=== PATIENT | male | born 1980 | race Caucasian/White ===

== ENCOUNTER → 2017-02-14 | Emergency (ER) | payer OTHER ==
[~2017-02-14] MED LIST: ACETAMINOPHEN 325 MG TABLET (FP) ONE; ACETAMINOPHEN 325 MG TABLET (FP) PO ONE; ALBUTEROL SO4 2.5/IPRATROPIUM 0.5 INH SOL 3 ML VIAL.NEB. NEB ONE; ASPIRIN 81 MG CHEWABLE TABLETS ONE; ASPIRIN 81 MG CHEWABLE TABLETS PO ONE
[2017-02-14 17:14] VITALS: TEMP 98; BMI 24.6
--- NOTE | 2017-02-14 17:50 | PDOC ---
[id number] [id number] CHEST PAIN Time Seen by Provider: 02/14/17 17:49 History Source: Patient Exam Limitations: No Limitations - History of Present Illness Initial Comments: 02/14/17 17:50 CHIEF COMPLAINT: Chest pain HISTORY OF PRESENT ILLNESS: This is a 36 year old male with a history of HTN, HLD, asthma (on daily Symbicort and Singulair, albuterol prn, hospitalized but never intubated), and seizure disorder who presents complaining of chest pain. The pain began this morning while he was at work. He works as a senior mechanical design engineer, but denies any heavy lifting or straining today. The pain has been constant and does not seem to be related to movement or exertion. He denies cough and shortness of breath. He recalls having a normal stress test about 1 year ago. The patient smokes 3-4 cigarettes daily. Family history is notable for father with CVA and DVTs. V/s on arrival are notable for P 100. PCP is Dr. Kidd. Distribution Spec is Dr. Davenport. REVIEW OF SYSTEMS: GENERAL/CONSTITUTIONAL: No fever or chills. No weakness. No weight change. HEAD, EYES, EARS, NOSE AND THROAT: No change in vision. No ear pain or discharge. No sore throat. CARDIOVASCULAR: See HPI. RESPIRATORY: No cough, wheezing, or shortness of breath. GASTROINTESTINAL: No nausea, vomiting, diarrhea or constipation. GENITOURINARY: No dysuria, frequency, or change in urination. MUSCULOSKELETAL: No joint or muscle swelling or pain. No neck or back pain. SKIN: No rash or easy bruising. NEUROLOGIC: No headache, vertigo, loss of consciousness, or loss of sensation. PSYCHIATRIC: No depression or anxiety. ENDOCRINE: No increased thirst. No abnormal weight change. HEMATOLOGIC/LYMPHATIC: No anemia, easy bleeding, or history of blood clots. ALLERGIC/IMMUNOLOGIC: No hives or skin allergy. No latex allergy. PHYSICAL EXAM: GENERAL: The patient is awake, alert, and fully oriented, in no acute distress. HEAD: Normal with no signs of trauma. ENT: Pupils equal, round and reactive to light, extraocular movements intact, sclera anicteric, conjunctiva clear. Neck supple. LUNGS: Clear to auscultation bilaterally. Normal excursion. No respiratory distress or use of accessory muscles. Pain not reproducible with palpation/ twisting movement. CV: RRR, S1/S2, no MRG. Cap refill < 2 sec. ABDOMEN: Soft, non-distended, non-tender. EXTREMITIES: Normal range of motion, no edema. NEUROLOGICAL: Normal speech, normal gait. CN II-XII grossly intact. PSYCH: Normal mood, normal affect. SKIN: Warm, dry, normal turgor, no rashes or lesions noted. Past History - Past Medical History Allergies/Adverse Reactions: Allergies Allergy/AdvReac Type Severity Reaction Status Date / Time fluticasone propionate Allergy Verified 02/14/17 17:14 [From Advair Diskus] ibuprofen [From Motrin] Allergy ulcers Verified 02/14/17 17:14 NSAIDS (Non-Steroidal Allergy Verified 02/14/17 17:14 Anti-Inflamma salmeterol xinafoate AdvReac Intermediate Elevated Verified 02/14/17 17:14 [From Advair Diskus] Blood Pressure Home Medications: Ambulatory Orders Amlodipine Besylate [Norvasc -] 10 mg PO DAILY 10/16/12 Atorvastatin Ca [Lipitor] 10 mg PO DAILY 10/16/12 Losartan Potassium 100 mg PO DAILY 10/16/12 Omeprazole [Prilosec (RX)] 40 mg PO DAILY 10/16/12 Albuterol Sulfate [Proair Hfa -] 1 - 2 inh PO TID 02/07/15 Budesonide/Formeterol Fumarate [SYMBICORT 160/4.5mcg -] 1 inh PO BID 02/07/15 Chlorthalidone 25 mg PO DAILY 02/14/17 Asthma: Yes Cardiac Disorders: Yes (heart murmur) Disorders: Yes (kidney stones) HTN: Yes Hypercholesterolemia: Yes Seizures: Yes Thyroid Disease: Yes - Surgical History Neurologic Surgery: (l breast lump removed) - Immunization History Immunization Up to Date: Yes - Psycho/Social/Smoking Cessation Hx Anxiety: No Suicidal Ideation: No Smoking Status: Yes Smoking History: Current every day smoker Have you smoked in the past 12 months: Yes Number of Cigarettes Smoked Daily: 40 Information on smoking cessation initiated: No 'Breaking Loose' booklet given: 12/20/13 Hx Alcohol Use: Yes (social) Drug/Substance Use Hx: No Substance Use Type: None *Physical Exam - Vital Signs Last Vital Signs Temp Pulse Resp BP Pulse Ox 98 F 100 H 18 157/93 99 02/14/17 17:11 02/14/17 17:11 02/14/17 17:11 02/14/17 17:11 02/14/17 17:11 Heart Score/ECG Review - History History: Moderately suspicious - Electrocardiogram EKG: Normal - Age Age: </= 45 - Risk Factors Risk Factors Heart Score: Yes Hx Hypertension, Yes Smoking History, Yes Positive family hx of cardiac disease - ECG Intrepretation Comment:: 02/14/17 18:37 NSR at 85bpm, possible left atrial enlargement, Q waves in V1 and V2 also seen on prior EKG of 12/2013. ED Treatment Course - LABORATORY CBC & Chemistry Diagram: 02/14/17 18:22 02/14/17 18:22 - RADIOLOGY Radiology Studies Ordered: Category Date Time Status CHEST PA & LAT [RAD] Stat Radiology 02/14/17 17:49 Ordered Medical Decision Making - Medical Decision Making 02/14/17 18:36 A/P: 36 year old male with chest pain. 1. EKG 2. CXR 3. Cardiac labs + d-dimer (family hx DVT, current smoker) 4. ASA 162mg (allergic to ibuprofen but has taken ASA without reaction) 5. Reassess *DC/Admit/Observation/Transfer Diagnosis at time of Disposition: Atypical chest pain, Bronchitis - Discharge Dispostion Disposition: HOME - Referrals Referrals: Keyanna Haynes MD [Primary Care Provider] - - Patient Instructions Printed Discharge Instructions: DI for Atypical Chest Pain Additional Instructions: follow up with your doctor as soon as possible. continue albuterol as prescribed
[2017-02-14 18:35] LABS: BASOPHIL 1.4 % (0-2.0); EOSINOPHIL 2.6 % (0-4.5); MCH 30.2 pg (25.7-33.7); MCHC 33.6 g/dl (32.0-35.9); MEAN CELL VOLUME 89.9 fl (80-96); MEAN PLT VOLUME 8.9 fl (7.5-11.1); NEUTROPHILS 50.8 % (42.8-82.8); PLATELET COUNT 292 K/MM3 (134-434); RDW 13.1 % (11.9-15.9); WHITE BLOOD COUNT 7.9 K/mm3 (4.0-10.0)
[2017-02-14 18:53] LABS: INR 1.08 (0.82-1.09)
[2017-02-14 18:56] LABS: ALBUMIN 4.1 g/dl (3.4-5.0); ANION GAP 9 (8-16); BILIRUBIN,TOTAL 0.4 mg/dL (0.2-1.0); CALCIUM 9.4 mg/dL (8.5-10.1); CO2 30 mmol/L (21-32); CREATININE 0.8 mg/dL (0.7-1.3); GLUCOSE,RANDOM 93 mg/dL (74-106); SGOT/AST 14 U/L (15-37); SGPT/ALT 32 U/L (12-78); TOT PROT 7.5 g/dl (6.4-8.2)
[2017-02-14 18:59] LABS: ALK PHOS 80 U/L (45-117); TROPONIN I < 0.02 ng/ml (0.00-0.05)
[2017-02-14 19:17] LABS: D-DIMER < 200 ng/ml (<200-235)
--- NOTE | 2017-02-14 20:57 | PDOC ---
[id number] 99 02/14/17 17:11 02/14/17 17:11 02/14/17 17:11 02/14/17 17:11 02/14/17 17:11 - Physical Exam General Appearance: Yes: Appropriately Dressed Respiratory/Chest: positive: Other (coarse breath sounds, moist cough) Cardiovascular: positive: Regular Rhythm, Regular Rate Gastrointestinal/Abdominal: positive: Normal Bowel Sounds Extremity: positive: Normal Capillary Refill, Normal Inspection, Normal Range of Motion Integumentary: positive: Normal Color, Dry, Warm Neurologic: positive: Fully Oriented, Alert ED Treatment Course - LABORATORY CBC & Chemistry Diagram: 02/14/17 18:22 02/14/17 18:22 - ADDITIONAL ORDERS Additional order review: Laboratory Results 02/14/17 02/14/17 18:22 18:22 INR 1.08 D-Dimer < 200 Sodium 140 Potassium 4.1 Chloride 101 Carbon Dioxide 30 D Anion Gap 9 BUN 7 Creatinine 0.8 Creat Clearance w eGFR > 60 Random Glucose 93 Calcium 9.4 Total Bilirubin 0.4 D AST 14 L ALT 32 D Alkaline Phosphatase 80 Creatine Kinase 81 Troponin I < 0.02 Total Protein 7.5 Albumin 4.1 02/14/17 18:22 RBC 4.96 MCV 89.9 MCHC 33.6 RDW 13.1 MPV 8.9 Neutrophils % 50.8 Lymphocytes % 38.1 Monocytes % 7.1 Eosinophils % 2.6 Basophils % 1.4 - RADIOLOGY Chest X-Ray Result: No Infiltrates Radiograph Interpretation: 02/14/17 20:57 hyperinflated lungs. CXR offcial read pending. no focal consolidation noted - Medications Given in the ED: ED Medications Discontinued Medications Generic Name Dose Route Start Last Admin Trade Name Freq PRN Reason Stop Dose Admin Aspirin 162 mg 02/14/17 18:16 02/14/17 18:21 Asa - PO 02/14/17 18:17 162 mg ONCE ONE Administration Medical Decision Making - Medical Decision Making 02/15/17 01:40 pATIENT reports that he is currently on azithromycin for bronchitis. likely pain related cough and chest congestion. cardiac workup wnl. cardiac enzymes x 2 wnl. EKG: Sinus Bradycardia. Possible left atrial enlargement. Patient reports feeling better. will d/c home to follow up with pmd *DC/Admit/Observation/Transfer Diagnosis at time of Disposition: Atypical chest pain, Bronchitis - Discharge Dispostion Disposition: HOME - Referrals Referrals: Keyanna Haynes MD [Primary Care Provider] - - Patient Instructions Printed Discharge Instructions: DI for Atypical Chest Pain Additional Instructions: follow up with your doctor as soon as possible. continue albuterol as prescribed - Post Discharge Activity
[2017-02-14 20:59] VITALS: BP 151/90; PULSE 64
[2017-02-15 01:36] LABS: TROPONIN I < 0.02 ng/ml (0.00-0.05)
--- NOTE | 2017-02-15 17:33 | EKG ---
Test Reason : Blood Pressure : / mmHG Vent. Rate : 058 BPM Atrial Rate : 058 BPM P-R Int : 154 ms QRS Dur : 106 ms QT Int : 452 ms P-R-T Axes : 050 036 030 degrees QTc Int : 443 ms SINUS BRADYCARDIA POSSIBLE LEFT ATRIAL ENLARGEMENT BORDERLINE ECG WHEN COMPARED WITH ECG OF 20-DEC-2013 20:04, NO SIGNIFICANT CHANGE WAS FOUND Confirmed by GENI NUNES MD ([id number]) on 02/15/2017 5:33:24 PM Referred By: Confirmed By:GENI NUNES MD
--- NOTE | 2017-02-15 17:35 | EKG ---
Test Reason : Blood Pressure : / mmHG Vent. Rate : 085 BPM Atrial Rate : 085 BPM P-R Int : 158 ms QRS Dur : 092 ms QT Int : 370 ms P-R-T Axes : 046 037 035 degrees QTc Int : 440 ms NORMAL SINUS RHYTHM POSSIBLE LEFT ATRIAL ENLARGEMENT CANNOT RULE OUT SEPTAL INFARCT (CITED ON OR BEFORE 16-OCT-2012) ABNORMAL ECG WHEN COMPARED WITH ECG OF 20-DEC-2013 20:04, NO SIGNIFICANT CHANGE WAS FOUND Confirmed by GENI NUNES MD ([id number]) on 02/15/2017 5:35:01 PM Referred By: Confirmed By:GENI NUNES MD
== END | disposition home or self-care (01) ==
LOC: JER 17:08
PROC: 3E0F7GC Introduction of Other Therapeutic Substance into Respiratory Tract, Via Natural or Artificial Opening (ICD-10-PCS; principal; 2017-02-14)
DX: J40 Bronchitis, not specified as acute or chronic (principal)
CPT/HCPCS: 36415; 71020-TC; 80053; 82550; 84484; 85025; 85379; 85610; 93005; 93010; 94640; 99283-25

== ENCOUNTER 2020-07-22 04:51 | Inpatient (IN) | payer OTHER ==
[2020-07-22] MEDS ORDERED: MAGNESIUM 1GM/D5W - 2 GM/200 ML IVPB IVPB ONE (05:00)
[2020-07-22] MEDS ORDERED: EPINEPHrine/PF 1 MG/1 ML (1:1,000) AMPULE ONE ×2 (05:03→05:12)
[2020-07-22] MEDS ORDERED: DEXAMETHASONE SOD PHOSPHATE 10 MG/1 ML VIAL ONE (05:16)
[2020-07-22] MEDS ORDERED: ALBUTEROL SO4 2.5/IPRATROPIUM 0.5 INH SOL 3 ML VIAL.NEB. NEB ONE ×2 (05:25→15:13)
[2020-07-22] MEDS ORDERED: EPINEPHrine 1:1,000 0.3 MG/0.3 ML SYR IM ONE (05:25)
[2020-07-22] MEDS ORDERED: MAGNESIUM SULF 50% (8.12 MEQ/2 ML-1 GM VIAL) IVPB ONE ×2 (05:25→05:39)
[2020-07-22] MEDS ORDERED: SODIUM CHLORIDE 1,000 ML IV STA (05:25)
--- NOTE | 2020-07-22 05:37 | PDOC ---
Attending Attestation - Resident Resident Name: Jerome Hager - ED Attending Attestation I have performed the following: I have examined & evaluated the patient, The case was reviewed & discussed with the resident, I agree w/resident's findings & plan - HPI HPI: 07/22/20 06:08 see resident hpi - Physicial Exam PE: 07/22/20 06:08 see resident exam - Critical Care Time Total Critical Care Time: 60 Critical Care Statement: The care of this patient involved high complexity decision making to prevent further life threatening deterioration of the patient's condition and/or to evaluate & treat vital organ system(s) failure or risk of failure. - Medical Decision Making 07/22/20 06:39-year-old male complaining of sore throat and difficulty breathing On arrival patient had received nebulizer treatment as well as dexamethasone with some improvement On exam bilaterally with increased upper airway sounds on forced expiration and cough Patient received magnesium 2 g, DuoNeb and epinephrine 1: 1000, 0.3 mg IM Is currently in no active distress and able to speak full sentences Does admit to recent chest pain and sore throat which may be related to acid reflux He also admits to regular alcohol use, specifically earlier this evening Plan for labs, EKG chest x-ray We will plan for telemetry observation pending reevaluation Discharge - Discharge Information Problems reviewed: Yes Clinical Impression/Diagnosis: Laryngospasm, Asthma, Burning chest pain Condition: Stable - Follow up/Referral Referrals: Keyanna Haynes MD [Primary Care Provider] - - Patient Discharge Instructions - Post Discharge Activity
--- NOTE | 2020-07-22 05:41 | PDOC ---
History of Present Illness - General Chief Complaint: Asthma Stated Complaint: S.O.B. Time Seen by Provider: 07/22/20 05:35 History Source: Patient, EMS Exam Limitations: No Limitations - History of Present Illness Initial Comments: 07/22/20 05:35 PCP: [place] HPI: 39 yo M pmh asthma, GERD, h/o peptic ulcers, HTN, HLD, tobacco and marijuana abuse, lung nodule, presenting from home with shortness of breath, cough progressively worsening for 3 days. Patient reports compliance with his asthma medications. Endorses intermittent ETOH use including 3 days ago and again tonight. Reporting GERD symptoms over the past 1.5 week period with progressively worsening cough and burning chest discomfort. Reports 5 cigarettes / day down from 2 ppd previously, occasional marijuana smoker. Patient endorses prior prolonged ICU admission at [facility] with intubation for asthma. Endorses chest pain while coughing, denies diaphoresis, exertional chest pain, edema, cardiac problems, recent fevers, chills, nausea, vomiting. Unsure of his triggers, progressive symptoms for several days. All: NSAIDs (h/o ulcer), fluticasone Meds: Per chart PMH: As above PSH: Surgery left right [id number] s/p accidental amputation Past History - Travel History Traveled outside of the country in the last 30 days: No Close contact w/someone who was outside of country & ill: No - Medical History Allergies/Adverse Reactions: Allergies Allergy/AdvReac Type Severity Reaction Status Date / Time fluticasone propionate Allergy Verified 02/14/17 17:14 [From Advair Diskus] ibuprofen [From Motrin] Allergy ulcers Verified 02/14/17 17:14 NSAIDS (Non-Steroidal Allergy Verified 02/14/17 17:14 Anti-Inflamma salmeterol xinafoate AdvReac Intermediate Elevated Verified 02/14/17 17:14 [From Advair Diskus] Blood Pressure Home Medications: Ambulatory Orders Amlodipine Besylate [Norvasc -] 10 mg PO DAILY 10/16/12 Atorvastatin Ca [Lipitor] 10 mg PO DAILY 10/16/12 Losartan Potassium 100 mg PO DAILY 10/16/12 Omeprazole [Prilosec (RX)] 40 mg PO DAILY 10/16/12 Albuterol Sulfate [Proair Hfa -] 1 - 2 inh PO TID 03/27/15 Budesonide/Formeterol Fumarate [SYMBICORT 160/4.5mcg -] 1 inh PO BID 02/07/15 Chlorthalidone 25 mg PO DAILY 02/14/17 Asthma: Yes Cardiac Disorders: Yes (heart murmur) COPD: No Disorders: Yes (kidney stones) HTN: Yes Hypercholesterolemia: Yes Seizures: Yes Thyroid Disease: Yes - Surgical History Neurologic Surgery: (l breast lump removed) - Immunization History Immunization Up to Date: Yes - Psycho-Social/Smoking History Smoking Status: Yes Smoking History: Current every day smoker Have you smoked in the past 12 months: Yes Number of Cigarettes Smoked Daily: 5 Information on smoking cessation initiated: Yes 'Breaking Loose' booklet given: 12/20/13 - Substance Abuse Hx (Audit-C & DAST Scrn) How often the patient has a drink containing alcohol: 2-4 times / month Number of drinks the patient has on a typical day: 3 or 4 How often the patient has six or more drinks on one occasion: Less than monthly Score: In Men: 4 or > Positive; In Women: 3 or > Positive: 4 Screen Result (Pos requires Nsg. Audit-10AR): Positive In the last yr the pt used illegal drug/Rx for NonMed reason: Yes Score: Yes response is considered Positive: 1 Screen Result (Positive result requires Nsg. DAST-10): Positive Review of Systems - Review of Systems Able to Perform ROS?: Yes Is the patient limited Kinyarwanda proficient: Yes Constitutional: No: Chills, Fever, Weakness HEENTM: No: Recent change in vision, Nose Congestion, Throat Pain Respiratory: Yes: Cough, Shortness of Breath. No: Wheezing, Productive cough Cardiac (ROS): Yes: Chest Pain. No: Palpitations, Syncope, Chest Tightness ABD/GI: No: Constipated, Diarrhea, Nausea, Vomiting : No: Burning, Dysuria, Frequency Musculoskeletal: No: Back Pain, Muscle Pain, Muscle Weakness Integumentary: No: Bruising, Lesions, Lumps Neurological: No: Headache, Numbness, Tingling, Weakness Psychiatric: No: Stressors, Change in Appetite Endocrine: No: Increased Thirst, Increased Urine, Change in Weight Hematologic/Lymphatic: No: Anemia, Blood Clots, Easy Bleeding All Other Systems: Reviewed and Negative *Physical Exam - Vital Signs Last Vital Signs Temp Pulse Resp BP Pulse Ox 97.8 F 102 H 42 H 151/103 H 100 07/22/20 05:05 07/22/20 05:05 07/22/20 05:05 07/22/20 05:05 07/22/20 05:05 - Physical Exam 07/22/20 05:49 Vitals reviewed, afebrile, hypertensive, tachyardic, tachypneic on arrival GEN: Coughing violently, uncomfortable, speaking full sentences, smells of smoke, appears stated age. AAOx3. HEENT: NCAT, EOMI, PERRL. Sclera anicteric, non-injected. No facial asymmetry. Moist mucous membranes. Trachea midline. CV: RRR, S1/S2, no murmurs / rubs / gallops appreciated. LUNG: Coughing without production of sputum, increased work of breathing, scattered upper airway wheezes, good air movement without wheezes in mid-lower lung mello. Speaking full sentences with ease. GI: Soft, NTND, +BS, no guarding, no rebound. No masses. EXTREMITIES: 2+ distal pulses. No clubbing / cyanosis / edema. No gross deformity in any extremity. Post-surgical left ring finger tip. SKIN: Warm, dry, no rashes appreciated, non-jaundiced. PSYCH: Inebriated, normal mood and affect. Personable and cooperative. NEURO: CN grossly intact. Moving all extremities well. Normal strength and sensation grossly. ED Treatment Course - LABORATORY CBC & Chemistry Diagram: 07/22/20 05:10 07/22/20 05:10 - Medications Given in the ED: ED Medications Discontinued Medications Generic Name Dose Route Start Last Admin Trade Name Conchita PRN Reason Stop Dose Admin Albuterol/Ipratropium 3 amp 07/22/20 05:25 07/22/20 05:10 Duoneb - NEB 07/22/20 05:26 3 amp ONCE ONE Administration Epinephrine 0.3 mg 07/22/20 05:25 07/22/20 05:25 Epipen 0.3mg - IM 07/22/20 05:26 0.3 mg ONCE ONE Administration Medical Decision Making - Medical Decision Making 07/22/20 05:41 39 yo M pmh asthma, GERD, h/o peptic ulcers, HTN, HLD, tobacco and marijuana abuse, lung nodule, presenting from home with shortness of breath, cough progressively worsening for 3 days. History notable for subacute worsening, cough, ETOH intox at present. Exam notable for violent coughing on arrival, hypertension, tachycardia and tachypnea with the violent coughs, good air movement throughout with transmitted upper airway sounds / scattered high-field wheezes. Ddx: aspiration, croup, GERD upper airway irritation, less likely given exam - PNA, asthma exacerbation. Will also evaluate for GERD vs r/o ACS given atypical chest pain complaint. - CBC, CMP, Cardiac Profile, Mg, ETOH, ASA, Salicylates, ABG - CXR, EKG - Duonebs x3 - Mg 2mg IV - Epi 0.3cc of 1:1000 IM - s/p Decadron 10 mg IV with EMS - 1L NS - Pepcid - Maalox 07/22/20 06:01 EK, NSR, normal axis, normal intervals, QTc 450, no ST changes or concerning morphologies Patient more relaxed, HR 90s, BP improving, RR 16, Sat remains 100% Tentative tele obs for chest pain, asthma exacerbation 07/22/20 06:41 ABG c/w compensated respiratory alkalosis No leukocytosis or anemia Normal electrolytes ETOH elevated Acetaminophen, Troponin, Mg pending Patient to be endorsed to day team Discharge - Discharge Information Problems reviewed: Yes Clinical Impression/Diagnosis: Laryngospasm, Burning chest pain Asthma Qualifiers: Asthma severity: unspecified severity Asthma persistence: unspecified Asthma complication type: unspecified Qualified Code(s): J45.909 - Unspecified asthma, uncomplicated Condition: Stable - Follow up/Referral Referrals: Keyanna Haynes MD [Primary Care Provider] - - Patient Discharge Instructions - Post Discharge Activity
[2020-07-22 05:44] VITALS: BMI 25.8
[2020-07-22 05:47] LABS: BASO % 1.2 % (0-2.0); EOS % 3.2 % (0-4.5); HEMOGLOBIN 15.8 GM/dL (11.7-16.9); LYMPH % 38.2 % (8-40); MCH 31.6 pg (25.7-33.7); MCHC 33.6 g/dl (32.0-35.9); MEAN CELL VOLUME 93.8 fl (80-96); MEAN PLT VOLUME 8.7 fl (7.5-11.1); MONO % 7.2 % (3.8-10.2); NEUT % 50.2 % (42.8-82.8); PLATELET COUNT 348 K/MM3 (134-434); RBC 5.01 M/mm3 (4.00-5.60); RDW 13.9 % (11.9-15.9)
[2020-07-22] MEDS ORDERED: FAMOTIDINE 20 MG/50 ML IVPB 20 MG/50 ML MG IVPB ONE ×2 (06:13→06:41)
[2020-07-22] MEDS ORDERED: MAG HYDROX/AL HYDROX/SIMETH 30 ML UNIT-DOSE CUP PO ONE (06:13)
[2020-07-22 06:18] LABS: ARTERIAL BLD GAS O2 SATURATION 93.6 mmHg (95-98); ARTERIAL BLOOD GAS BASE EXCESS -4.9 mmol/L (-2-2); ARTERIAL BLOOD GAS PO2 69.4 mmHg (80-100); ARTERIAL BLOOD GAS pH 7.368 (7.350-7.450)
[2020-07-22 06:32] LABS: ALBUMIN 4.2 g/dl (3.4-5.0); ANION GAP 13 MMOL/L (8-16); BLOOD UREA NITROGEN 6.9 mg/dL (7-18); CALCIUM 9.4 mg/dL (8.5-10.1); CHLORIDE 108 mmol/L (98-107); CO2 22 mmol/L (21-32); CREATININE 0.8 mg/dL (0.55-1.3); GLUCOSE,RANDOM 93 mg/dL (74-106); MAGNESIUM 2.1 mg/dL (1.8-2.4); POTASSIUM 4.3 mmol/L (3.5-5.1); SGPT/ALT 33 U/L (13-61); SODIUM 143 mmol/L (136-145)
[2020-07-22 06:38] LABS: ALK PHOS 83 U/L (45-117); BILIRUBIN,TOTAL 0.2 mg/dL (0.2-1); SGOT/AST 20 U/L (15-37)
[2020-07-22] MEDS ORDERED: MAG HYDROX/AL HYDROX/SIMETH 30 ML UNIT-DOSE CUP ONE (06:41)
[2020-07-22] MEDS ORDERED: MAGNESIUM 1GM/D5W - 1 GM/100 ML IVPB IVPB ONE (07:28)
--- NOTE | 2020-07-22 10:53 | EKG ---
Test Reason : Blood Pressure : / mmHG Vent. Rate : 102 BPM Atrial Rate : 102 BPM P-R Int : 150 ms QRS Dur : 090 ms QT Int : 346 ms P-R-T Axes : 036 011 024 degrees QTc Int : 450 ms SINUS TACHYCARDIA OTHERWISE NORMAL ECG WHEN COMPARED WITH ECG OF 15-FEB-2017 00:48, VENT. RATE HAS INCREASED BY 44 BPM NONSPECIFIC T WAVE ABNORMALITY NOW EVIDENT IN LATERAL LEADS Confirmed by Ethan Reyes MD ([id number]) on 07/22/2020 10:52:22 AM Referred By: Confirmed By:Ethan Reyes MD
[2020-07-22] MEDS ORDERED: ALBUTEROL SO4 HFA INHALER IH PRN (12:55)
[2020-07-22] MEDS: LACTATED RINGERS SOLUTION 1,000 ML/1,000 ML INFUS.BAG IV SCH (13:00)
--- NOTE | 2020-07-22 13:39 | PN ---
Progress Note (short form) - Note Progress Note: PULMONARY CONSULTATION DICTATED 07/22/20 IMP ACUTE ASTHMA EXACERBATION GERD PEPTIC ULCER DISEASE HTN HLD TOBACCO ABUSE ? H/O PULMONARY NODULE PLAN SUPPLEMENTAL O2 INHALED BRONCHODILATORS IV STEROIDS MONITOR PEAK FLOW SMOKING CESSATION COUNSELED CHEST CT OUTPATIENT PFTS IGE LEVEL DR LOPEZ Problem List - Problems (1) Tobacco abuse Code(s): Z72.0 - TOBACCO USE (2) Tobacco abuse counseling Code(s): Z71.6 - TOBACCO ABUSE COUNSELING (3) Asthma Code(s): J45.909 - UNSPECIFIED ASTHMA, UNCOMPLICATED Qualifiers: Asthma severity: unspecified severity Asthma persistence: unspecified Asthma complication type: unspecified Qualified Code(s): J45.909 - Unspecified asthma, uncomplicated (4) Laryngospasm Code(s): J38.5 - LARYNGEAL SPASM (5) Lung nodule Code(s): R91.1 - SOLITARY PULMONARY NODULE (6) Asthma exacerbation Code(s): J45.901 - UNSPECIFIED ASTHMA WITH (ACUTE) EXACERBATION
[2020-07-22] MEDS ORDERED: ALBUTEROL SO4 0.083% IH SOL 2.5 MG/3 ML VIAL.NEB. NEB PRN (14:08)
[2020-07-22] MEDS: methylPREDNISolone NA SUCC 40 MG/1 ML VIAL IVPUSH SCH ×2 (15:00→21:39)
[2020-07-22] MEDS ORDERED: methylPREDNISolone NA SUCC 125 MG/2 ML VIAL ONE (15:13)
[2020-07-22] MEDS: ALBUTEROL SO4 2.5/IPRATROPIUM 0.5 INH SOL 3 ML VIAL.NEB. NEB SCH ×2 (16:00→20:30)
--- NOTE | 2020-07-22 16:44 | CONS ---
DATE OF CONSULTATION: 07/22/2020 PULMONARY CONSULTATION REFERRING PHYSICIAN: Keyanna Haynes MD. HISTORY OF PRESENT ILLNESS: The patient is a 39-year-old male known to me who was seen in my office, who I evaluated in my office greater than 7 years ago and have not seen since. His past medical history includes asthma, GERD, history of COPD, history of peptic ulcer, hypertension, hyperlipidemia, tobacco and marijuana abuse, admitted to [facility] with complaint of increasing shortness of breath, cough nonproductive, and bronchospasm. The patient denied any recent fevers, URI symptoms. States for the past 3 days, started getting progressive shortness of breath, wheezing, despite taking his inhaled medications his symptoms continued to worsen, at which time he was sent to the emergency room. In the ER, he was noted to be in respiratory distress, he was started on IV steroids with bronchodilators with good clinical response. Denies hemoptysis. He does complain of chest tightness. PAST MEDICAL HISTORY: Past medical history again includes hypertension, GERD, hyperlipidemia, asthma, COPD, questionable lung nodule, tobacco and marijuana abuse. Also past medical history of ICU admission secondary to asthma years ago. REVIEW OF SYSTEMS: Positive shortness of breath. Positive cough. Positive wheezing. No fever. No chills. No hemoptysis. No abdominal pain. Positive chest tightness. CURRENT MEDICATIONS: Include: 1. Symbicort. 2. Cozaar. 3. Albuterol. 4. Norvasc. 5. Lipitor. 6. Lactase Ringer's. PHYSICAL EXAMINATION: General: The patient is a well-developed, well-nourished male, alert, awake, comfortable, currently in no acute distress, although having episodes of coughing paroxysms. He is afebrile. Vital Signs: Blood pressure 145/77, respiratory rate 18, O2 saturation 98% on room air. HEENT: Normocephalic, atraumatic. Neck: Supple. Heart: Regular S1, S2. Chest: A few scattered bilateral wheezes. Abdomen: Soft, bowel sounds positive. Extremities: No cyanosis, edema. LABORATORY: BUN is 6.9, creatinine 0.8. Blood gas: 7.36, pCO2 of 34.6, pO2 is 69, a bicarbonate of 19, and saturation of 93.6. WBC is 10, hemoglobin 15.8, hematocrit 47, platelet count 348,000. Chest x-ray: Poor inspiratory effort but no definitive infiltrates or effusions. Chest CT from 2018 of the left upper lobe. SOCIAL HISTORY: Positive tobacco, started at age 11, previously smoked 3 packs per day, currently now is smoking about 6 cigarettes a day, occasional ETOH and marijuana. IMPRESSION: 1. Dyspnea, chest tightness, cough secondary to acute asthma exacerbation. 2. History of gastroesophageal reflux disease. 3. Peptic ulcer disease. 4. Hypertension. 5. Hyperlipidemia. 6. Tobacco abuse. 7. Questionable history of pulmonary nodule. PLAN: Supplemental O2, inhaled bronchodilators, IV steroids, monitor peak flow, smoking cessation counseled, chest CT, outpatient PFTs and serum IgG levels outpatient. BETTINA LOPEZ M.D. [id number] MTDD
--- NOTE | 2020-07-22 17:47 | HP ---
Admitting History and Physical - Primary Care Physician PCP: Keyanna Haynes - Admission Chief Complaint: heartburn, cough History of Present Illness: severe heartburn for past 2-3 days, dry hacking cough with occasional wheezing and shortness of breath does take nsaids regularly does drink regularly drank three large bottles of beer and shot yesterday has been complaint with his medications History Source: Patient Limitations to Obtaining History: No Limitations - Past Medical History Cardiovascular: Yes: HTN, Other (h/o atypical chest pain, card cath negative in 2013, stress echo negative 2015) Pulmonary: Yes: Asthma - Smoking History Smoking history: Current every day smoker Have you smoked in the past 12 months: Yes Aproximately how many cigarettes per day: 5 - Alcohol/Substance Use Hx Alcohol Use: Yes (social) - Social History Usual Living Arrangement: Yes: Alone History of Recent Travel: No Home Medications - Allergies Allergies/Adverse Reactions: Allergies Allergy/AdvReac Type Severity Reaction Status Date / Time fluticasone propionate Allergy Verified 02/14/17 17:14 [From Advair Diskus] ibuprofen [From Motrin] Allergy ulcers Verified 02/14/17 17:14 NSAIDS (Non-Steroidal Allergy Verified 02/14/17 17:14 Anti-Inflamma salmeterol xinafoate AdvReac Intermediate Elevated Verified 02/14/17 17:14 [From Advair Diskus] Blood Pressure - Home Medications Home Medications: Ambulatory Orders Amlodipine Besylate [Norvasc -] 10 mg PO DAILY 10/16/12 Atorvastatin Ca [Lipitor] 10 mg PO DAILY 10/16/12 Losartan Potassium 100 mg PO DAILY 10/16/12 Omeprazole [Prilosec (RX)] 40 mg PO DAILY 10/16/12 Albuterol Sulfate [Proair Hfa -] 1 - 2 inh PO TID 02/07/15 Budesonide/Formeterol Fumarate [SYMBICORT 160/4.5mcg -] 1 inh PO BID 02/07/15 Chlorthalidone 25 mg PO DAILY 02/14/17 Review of Systems - Review of Systems Constitutional: denies: Chills, Fever, Lethargy, Loss of Appetite, Weakness Eyes: reports: No Symptoms HENT: reports: No Symptoms Neck: reports: No Symptoms Cardiovascular: reports: Chest Pain. denies: Palpitations Respiratory: reports: Cough, SOB on Exertion, Wheezing Gastrointestinal: reports: No Symptoms Genitourinary: reports: No Symptoms, Burning (epigastric) Musculoskeletal: reports: No Symptoms Integumentary: reports: No Symptoms Neurological: reports: No Symptoms Endocrine: reports: No Symptoms Hematology/Lymphatic: reports: No Symptoms Psychiatric: reports: No Symptoms Physical Examination Vital Signs: Vital Signs Temperature 98.2 F 07/22/20 13:32 Pulse Rate 81 07/22/20 13:32 Respiratory Rate 18 07/22/20 13:32 Blood Pressure 145/77 07/22/20 13:32 O2 Sat by Pulse Oximetry (%) 98 07/22/20 13:32 Constitutional: Yes: Well Nourished, No Distress, Calm Eyes: Yes: EOM Intact HENT: Yes: Normocephalic Neck: Yes: Trachea Midline Cardiovascular: Yes: Regular Rate and Rhythm Respiratory: Yes: CTA Bilaterally (coarse bilateral breath sounds) Gastrointestinal: Yes: Normal Bowel Sounds, Soft, Tenderness, Epigastrium Edema: No Peripheral Pulses WNL: Yes Integumentary: Yes: WNL Neurological: Yes: WNL Labs: CBC, BMP 07/22/20 05:10 07/22/20 05:10 Abnormal Lab Results 07/22/20 07/22/20 05:10 05:55 ABG pCO2 34.60 L ABG pO2 69.4 L ABG HCO3 19.5 L ABG O2 Sat (Measured) 93.6 L ABG Base Excess -4.9 L Chloride 108 H BUN 6.9 L Alcohol, Quantitative 130.7 H Imaging - Results Chest X-ray: Report Reviewed Problem List - Problems (1) Alcohol intoxication Problems reviewed: Yes Code(s): F10.929 - ALCOHOL USE, UNSPECIFIED WITH INTOXICATION, UNSPECIFIED Qualifiers: Complication of substance-induced condition: uncomplicated Qualified Code(s): F10.920 - Alcohol use, unspecified with intoxication, uncomplicated (2) Chronic GERD Problems reviewed: Yes Code(s): K21.9 - GASTRO-ESOPHAGEAL REFLUX DISEASE WITHOUT ESOPHAGITIS (3) Asthma exacerbation Code(s): J45.901 - UNSPECIFIED ASTHMA WITH (ACUTE) EXACERBATION Qualifiers: Asthma severity: mild Asthma persistence: intermittent Qualified Code(s): J45.21 - Mild intermittent asthma with (acute) exacerbation (4) Burning chest pain Code(s): R07.89 - OTHER CHEST PAIN Assessment/Plan alcohol intox resolved, does not report daily etoh use-will monitor for DT iv steroids bronchodilators for asthma exacerbation PPI for likely gerd repeat cardiac enzymes-if negative can admit to med/surg [id number] ryesy done in ed-results pending
[2020-07-22] MEDS: BUDESONIDE/FORMETEROL FUMARATE 160/4.5 mcg INHALER IH SCH (23:30)
[2020-07-23] MEDS: methylPREDNISolone NA SUCC 40 MG/1 ML VIAL IVPUSH SCH ×3 (03:15→18:14)
--- NOTE | 2020-07-23 07:42 | PN ---
Progress Note, Physician History of Present Illness: pulmonary alert,feeling better,less dyspneic,less cough - Current Medication List Current Medications: Active Medications Albuterol Sulfate (Ventolin Hfa Inhaler -) 2 puff IH TID PRN PRN Reason: ASTHMA Albuterol Sulfate (Ventolin 0.083% Nebulizer Soln -) 1 amp NEB Q4H PRN PRN Reason: SHORT OF BREATH/WHEEZING Albuterol/Ipratropium (Duoneb -) 1 amp NEB RQID [facility] Last Admin: 07/22/20 20:30 Dose: 1 amp Documented by: Amlodipine Besylate (Norvasc -) 10 mg PO DAILY [facility] Atorvastatin Calcium (Lipitor -) 10 mg PO DAILY [facility] Budesonide/Formoterol Fumarate (Symbicort 160/4.5mcg -) 1 puff IH BID [facility] Last Admin: 07/22/20 23:30 Dose: Not Given Documented by: Lactated Ringer's (Lactated Ringers Solution) 1,000 ml in 1,000 mls @ 75 mls/hr IV ASDIR [facility] Last Admin: 07/22/20 13:00 Dose: 75 mls/hr Documented by: Losartan Potassium (Cozaar -) 100 mg PO DAILY [facility] Methylprednisolone Sodium Succinate (Solu-Medrol -) 60 mg IVPUSH Q6H-IV [facility] Last Admin: 07/23/20 03:15 Dose: 60 mg Documented by: Pantoprazole Sodium (Protonix -) 40 mg PO DAILY [facility] - Objective Vital Signs: Vital Signs Temperature 97.7 F 07/23/20 06:49 Pulse Rate 94 H 07/23/20 06:49 Respiratory Rate 18 07/23/20 06:49 Blood Pressure 138/87 07/23/20 06:49 O2 Sat by Pulse Oximetry (%) 100 07/22/20 22:00 Constitutional: Yes: Well Nourished, Calm Eyes: Yes: WNL HENT: Yes: WNL Neck: Yes: WNL Cardiovascular: Yes: Regular Rate and Rhythm, S1, S2 Respiratory: Yes: Wheezes (few wheezes) Gastrointestinal: Yes: Normal Bowel Sounds, Soft Extremities: Yes: WNL Edema: No Labs: - ....Imaging Cat Scan: Report Reviewed, Image Reviewed Problem List - Problems (1) Tobacco abuse Code(s): Z72.0 - TOBACCO USE (2) Tobacco abuse counseling Code(s): Z71.6 - TOBACCO ABUSE COUNSELING (3) Asthma Code(s): J45.909 - UNSPECIFIED ASTHMA, UNCOMPLICATED Qualifiers: Asthma severity: unspecified severity Asthma persistence: unspecified Asthma complication type: unspecified Qualified Code(s): J45.909 - Unspecified asthma, uncomplicated (4) Laryngospasm Code(s): J38.5 - LARYNGEAL SPASM (5) Lung nodule Code(s): R91.1 - SOLITARY PULMONARY NODULE (6) Asthma exacerbation Code(s): J45.901 - UNSPECIFIED ASTHMA WITH (ACUTE) EXACERBATION Qualifiers: Asthma severity: mild Asthma persistence: intermittent Qualified Code(s): J45.21 - Mild intermittent asthma with (acute) exacerbation Assessment/Plan IMP ACUTE ASTHMA EXACERBATION GERD PEPTIC ULCER DISEASE HTN HLD TOBACCO ABUSE H/O PULMONARY NODULE STABLE PLAN SUPPLEMENTAL O2 INHALED BRONCHODILATORS TAPER STEROIDS MONITOR PEAK FLOW SMOKING CESSATION COUNSELED CHEST CT OUTPATIENT PFTS IGE LEVEL DR LOPEZ Problem List - Problems (1) Tobacco abuse Code(s): Z72.0 - TOBACCO USE (2) Tobacco abuse counseling Code(s): Z71.6 - TOBACCO ABUSE COUNSELING (3) Asthma Code(s): J45.909 - UNSPECIFIED ASTHMA, UNCOMPLICATED Qualifiers: Asthma severity: unspecified severity Asthma persistence: unspecified Asthma complication type: unspecified Qualified Code(s): J45.909 - Unspecified asthma, uncomplicated (4) Laryngospasm Code(s): J38.5 - LARYNGEAL SPASM (5) Lung nodule Code(s): R91.1 - SOLITARY PULMONARY NODULE (6) Asthma exacerbation Code(s): J45.901 - UNSPECIFIED ASTHMA WITH (ACUTE) EXACERBATION
[2020-07-23] MEDS: LACTATED RINGERS SOLUTION 1,000 ML/1,000 ML INFUS.BAG IV SCH (07:55)
[2020-07-23] MEDS: ALBUTEROL SO4 2.5/IPRATROPIUM 0.5 INH SOL 3 ML VIAL.NEB. NEB SCH ×4 (08:00→20:56)
--- NOTE | 2020-07-23 08:28 | PN ---
Progress Note (short form) - Note Progress Note: no events overnight feeling better no epigastric pain Vital Signs Period Temp Pulse Resp BP Sys/Eldridge Pulse Ox Last 24 Hr 97.7 F-98.3 F 69-96 18-32 128-155/77-105 98-100 Active Medications Albuterol Sulfate (Ventolin Hfa Inhaler -) 2 puff IH TID PRN Albuterol Sulfate (Ventolin 0.083% Nebulizer Soln -) 1 amp NEB Q4H PRN Albuterol/Ipratropium (Duoneb -) 1 amp NEB RQID [facility] Amlodipine Besylate (Norvasc -) 10 mg PO DAILY [facility] Atorvastatin Calcium (Lipitor -) 10 mg PO DAILY [facility] Budesonide/Formoterol Fumarate (Symbicort 160/4.5mcg -) 1 puff IH BID [facility] Losartan Potassium (Cozaar -) 100 mg PO DAILY [facility] Methylprednisolone Sodium Succinate (Solu-Medrol -) 60 mg IVPUSH Q6H-IV [facility] Pantoprazole Sodium (Protonix -) 40 mg PO DAILY [facility] s1 s2 rrr lungs scattered exp. wheezing abd soft nn tedner no edema acute asthma exacerbation-better lung nodule in past HTN alcohol intoxication-resolved GERD cont iv steroids bronchodilators chest CT for lung nodule dc iv fluids transfer to [facility] once second troponin is resulted Problem List - Problems (1) Alcohol intoxication Code(s): F10.929 - ALCOHOL USE, UNSPECIFIED WITH INTOXICATION, UNSPECIFIED Qualifiers: Complication of substance-induced condition: uncomplicated Qualified Code(s): F10.920 - Alcohol use, unspecified with intoxication, uncomplicated (2) Chronic GERD Code(s): K21.9 - GASTRO-ESOPHAGEAL REFLUX DISEASE WITHOUT ESOPHAGITIS (3) Asthma exacerbation Code(s): J45.901 - UNSPECIFIED ASTHMA WITH (ACUTE) EXACERBATION Qualifiers: Asthma severity: mild Asthma persistence: intermittent Qualified Code(s): J45.21 - Mild intermittent asthma with (acute) exacerbation (4) Burning chest pain Code(s): R07.89 - OTHER CHEST PAIN
[2020-07-23] MEDS: amLODIPine BESYLATE 10 MG TABLET (FP) PO SCH (10:35)
[2020-07-23] MEDS: ATORVASTATIN CA 10 MG TABLET (FP) PO SCH (10:35)
[2020-07-23] MEDS: PANTOPRAZOLE 40 MG TABLET PO SCH (10:35)
[2020-07-23] MEDS: LOSARTAN POTASSIUM 50 MG TABLET (FP) PO SCH (10:35)
[2020-07-23] MEDS: BUDESONIDE/FORMETEROL FUMARATE 160/4.5 mcg INHALER IH SCH ×2 (10:35→22:11)
[2020-07-23 11:23] LABS: BASO % 0.1 % (0-2.0); HEMATOCRIT 43.5 % (35.4-49); HEMOGLOBIN 14.5 GM/dL (11.7-16.9); LYMPH % 4.5 % (8-40); MCH 31.6 pg (25.7-33.7); MCHC 33.3 g/dl (32.0-35.9); MEAN CELL VOLUME 94.9 fl (80-96); MEAN PLT VOLUME 8.9 fl (7.5-11.1); NEUT % 91.4 % (42.8-82.8); PLATELET COUNT 303 K/MM3 (134-434); RBC 4.58 M/mm3 (4.00-5.60); RDW 13.7 % (11.9-15.9); WHITE BLOOD COUNT 17.7 K/mm3 (4.0-10.0)
[2020-07-23 13:16] LABS: ALBUMIN 3.9 g/dl (3.4-5.0); ALK PHOS 72 U/L (45-117); ANION GAP 8 MMOL/L (8-16); BILIRUBIN,TOTAL 0.4 mg/dL (0.2-1); BLOOD UREA NITROGEN 13.5 mg/dL (7-18); CALCIUM 9.1 mg/dL (8.5-10.1); CHLORIDE 105 mmol/L (98-107); CO2 25 mmol/L (21-32); CREATININE 0.9 mg/dL (0.55-1.3); GLUCOSE,RANDOM 104 mg/dL (74-106); POTASSIUM 4.8 mmol/L (3.5-5.1); SGOT/AST 17 U/L (15-37); SGPT/ALT 30 U/L (13-61); SODIUM 139 mmol/L (136-145); TOT PROT 7.4 g/dl (6.4-8.2)
[2020-07-23 14:20] LABS: ANISOCYTOSIS 0; MACROCYTOSIS 0; PLATELET ESTIMATE NORMAL
[2020-07-24] MEDS: methylPREDNISolone NA SUCC 40 MG/1 ML VIAL IVPUSH SCH ×3 (01:32→21:28)
--- NOTE | 2020-07-24 07:26 | PN ---
Progress Note, Physician History of Present Illness: PULMONARY ALERT,COMFORTABLE,-SOB,MIN COUGH - Current Medication List Current Medications: Active Medications Albuterol Sulfate (Ventolin Hfa Inhaler -) 2 puff IH TID PRN PRN Reason: ASTHMA Albuterol Sulfate (Ventolin 0.083% Nebulizer Soln -) 1 amp NEB Q4H PRN PRN Reason: SHORT OF BREATH/WHEEZING Albuterol/Ipratropium (Duoneb -) 1 amp NEB RQID [facility] Last Admin: 07/23/20 20:56 Dose: 1 amp Documented by: Amlodipine Besylate (Norvasc -) 10 mg PO DAILY [facility] Last Admin: 07/23/20 10:35 Dose: 10 mg Documented by: Atorvastatin Calcium (Lipitor -) 10 mg PO DAILY [facility] Last Admin: 07/23/20 10:35 Dose: 10 mg Documented by: Budesonide/Formoterol Fumarate (Symbicort 160/4.5mcg -) 1 puff IH BID [facility] Last Admin: 07/23/20 22:11 Dose: 1 puff Documented by: Losartan Potassium (Cozaar -) 100 mg PO DAILY [facility] Last Admin: 07/23/20 10:35 Dose: 100 mg Documented by: Methylprednisolone Sodium Succinate (Solu-Medrol -) 60 mg IVPUSH Q8H-IV [facility] Last Admin: 07/24/20 01:32 Dose: 60 mg Documented by: Pantoprazole Sodium (Protonix -) 40 mg PO DAILY [facility] Last Admin: 07/23/20 10:35 Dose: 40 mg Documented by: - Objective Vital Signs: Vital Signs Temperature 97.9 F 07/24/20 01:35 Pulse Rate 73 07/24/20 01:35 Respiratory Rate 20 07/24/20 01:35 Blood Pressure 137/87 07/24/20 01:35 O2 Sat by Pulse Oximetry (%) 96 07/23/20 21:00 Constitutional: Yes: Well Nourished, Calm Eyes: Yes: WNL HENT: Yes: WNL Neck: Yes: WNL Cardiovascular: Yes: Regular Rate and Rhythm, S1, S2 Respiratory: Yes: CTA Bilaterally Gastrointestinal: Yes: Normal Bowel Sounds, Soft Extremities: Yes: WNL Edema: No Labs: CBC, BMP 07/23/20 11:00 07/23/20 11:00 Problem List - Problems (1) Tobacco abuse Code(s): Z72.0 - TOBACCO USE (2) Tobacco abuse counseling Code(s): Z71.6 - TOBACCO ABUSE COUNSELING (3) Asthma Code(s): J45.909 - UNSPECIFIED ASTHMA, UNCOMPLICATED Qualifiers: Asthma severity: unspecified severity Asthma persistence: unspecified Asthma complication type: unspecified Qualified Code(s): J45.909 - Unspecified asthma, uncomplicated (4) Laryngospasm Code(s): J38.5 - LARYNGEAL SPASM (5) Lung nodule Code(s): R91.1 - SOLITARY PULMONARY NODULE (6) Asthma exacerbation Code(s): J45.901 - UNSPECIFIED ASTHMA WITH (ACUTE) EXACERBATION Qualifiers: Asthma severity: mild Asthma persistence: intermittent Qualified Code(s): J45.21 - Mild intermittent asthma with (acute) exacerbation Assessment/Plan IMP ACUTE ASTHMA EXACERBATION GERD PEPTIC ULCER DISEASE HTN HLD TOBACCO ABUSE H/O PULMONARY NODULE STABLE PLAN O2 NEEDED INHALED BRONCHODILATORS PREDNISONE 50MG DAILY WITH TAPER SMOKING CESSATION COUNSELED OUTPATIENT PFTS IGE LEVEL DR LOPEZ Problem List - Problems (1) Tobacco abuse Code(s): Z72.0 - TOBACCO USE (2) Tobacco abuse counseling Code(s): Z71.6 - TOBACCO ABUSE COUNSELING (3) Asthma Code(s): J45.909 - UNSPECIFIED ASTHMA, UNCOMPLICATED Qualifiers: Asthma severity: unspecified severity Asthma persistence: unspecified Asthma complication type: unspecified Qualified Code(s): J45.909 - Unspecified asthma, uncomplicated (4) Laryngospasm Code(s): J38.5 - LARYNGEAL SPASM (5) Lung nodule Code(s): R91.1 - SOLITARY PULMONARY NODULE (6) Asthma exacerbation Code(s): J45.901 - UNSPECIFIED ASTHMA WITH (ACUTE) EXACERBATION
[2020-07-24] MEDS: ALBUTEROL SO4 2.5/IPRATROPIUM 0.5 INH SOL 3 ML VIAL.NEB. NEB SCH ×4 (07:40→20:26)
--- NOTE | 2020-07-24 07:49 | PN ---
Progress Note (short form) - Note Progress Note: no events overnight feeling better no epigastric pain CBC, BMP 07/23/20 11:00 07/23/20 11:00 Vital Signs Period Temp Pulse Resp BP Sys/Eldridge Pulse Ox Last 24 Hr 97.6 F-98.3 F 70-93 18-20 124-164/81-90 96-100 s1 s2 rrr lungs clear, less cough abd soft nn tedner no edema acute asthma exacerbation-better lung nodule in past HTN alcohol intoxication-resolved GERD taper iv steroids bronchodilators chest CT for lung nodule shows 4mm stable nodule, otherwise normal transfer to [facility] [place] Problem List - Problems (1) Alcohol intoxication Code(s): F10.929 - ALCOHOL USE, UNSPECIFIED WITH INTOXICATION, UNSPECIFIED Qualifiers: Complication of substance-induced condition: uncomplicated Qualified Code(s): F10.920 - Alcohol use, unspecified with intoxication, uncomplicated (2) Chronic GERD Code(s): K21.9 - GASTRO-ESOPHAGEAL REFLUX DISEASE WITHOUT ESOPHAGITIS (3) Asthma exacerbation Code(s): J45.901 - UNSPECIFIED ASTHMA WITH (ACUTE) EXACERBATION Qualifiers: Asthma severity: mild Asthma persistence: intermittent Qualified Code(s): J45.21 - Mild intermittent asthma with (acute) exacerbation (4) Burning chest pain Code(s): R07.89 - OTHER CHEST PAIN
[2020-07-24] MEDS: amLODIPine BESYLATE 10 MG TABLET (FP) PO SCH (10:35)
[2020-07-24] MEDS: PANTOPRAZOLE 40 MG TABLET PO SCH (10:35)
[2020-07-24] MEDS: ATORVASTATIN CA 10 MG TABLET (FP) PO SCH (10:35)
[2020-07-24] MEDS: BUDESONIDE/FORMETEROL FUMARATE 160/4.5 mcg INHALER IH SCH ×2 (10:36→21:30)
[2020-07-24] MEDS: LOSARTAN POTASSIUM 50 MG TABLET (FP) PO SCH (10:36)
[2020-07-25] MEDS: ALBUTEROL SO4 2.5/IPRATROPIUM 0.5 INH SOL 3 ML VIAL.NEB. NEB SCH (07:25)
[2020-07-25 07:50] LABS: BASO % 0.2 % (0-2.0); HEMATOCRIT 42.8 % (35.4-49); HEMOGLOBIN 13.9 GM/dL (11.7-16.9); LYMPH % 5.5 % (8-40); MCH 30.7 pg (25.7-33.7); MCHC 32.5 g/dl (32.0-35.9); MEAN CELL VOLUME 94.3 fl (80-96); MEAN PLT VOLUME 9.3 fl (7.5-11.1); MONO % 3.3 % (3.8-10.2); PLATELET COUNT 312 K/MM3 (134-434); RBC 4.54 M/mm3 (4.00-5.60); RDW 13.4 % (11.9-15.9); WHITE BLOOD COUNT 18.1 K/mm3 (4.0-10.0)
[2020-07-25 08:18] LABS: ALBUMIN 3.6 g/dl (3.4-5.0); BILIRUBIN,TOTAL 0.3 mg/dL (0.2-1); BLOOD UREA NITROGEN 15.5 mg/dL (7-18); CALCIUM 9.2 mg/dL (8.5-10.1); CREATININE 0.7 mg/dL (0.55-1.3); POTASSIUM 4.7 mmol/L (3.5-5.1); TOT PROT 6.8 g/dl (6.4-8.2)
--- NOTE | 2020-07-25 08:26 | HP ---
Admitting History and Physical - Past Medical History Cardiovascular: Yes: HTN, Other (h/o atypical chest pain, card cath negative in 2013, stress echo negative 2015) Pulmonary: Yes: Asthma - Smoking History Smoking history: Current every day smoker Have you smoked in the past 12 months: Yes Aproximately how many cigarettes per day: 5 - Alcohol/Substance Use Hx Alcohol Use: Yes (social) - Social History History of Recent Travel: No Home Medications - Allergies Allergies/Adverse Reactions: Allergies Allergy/AdvReac Type Severity Reaction Status Date / Time fluticasone propionate Allergy Verified 02/14/17 17:14 [From Advair Diskus] ibuprofen [From Motrin] Allergy ulcers Verified 02/14/17 17:14 NSAIDS (Non-Steroidal Allergy Verified 02/14/17 17:14 Anti-Inflamma salmeterol xinafoate AdvReac Intermediate Elevated Verified 02/14/17 17:14 [From Advair Diskus] Blood Pressure - Home Medications Home Medications: Ambulatory Orders Amlodipine Besylate [Norvasc -] 10 mg PO DAILY 10/16/12 Atorvastatin Ca [Lipitor] 10 mg PO DAILY 10/16/12 Losartan Potassium 100 mg PO DAILY 10/16/12 Omeprazole [Prilosec (RX)] 40 mg PO DAILY 10/16/12 Albuterol Sulfate [Proair Hfa -] 1 - 2 inh PO TID 02/07/15 Budesonide/Formeterol Fumarate [SYMBICORT 160/4.5mcg -] 1 inh PO BID 02/07/15 Chlorthalidone 25 mg PO DAILY 02/14/17 Albuterol 2.5/Ipratropium 0.5 [Duoneb -] 1 amp NEB RQID PRN #0 amp 07/25/20 Methylprednisolone [Medrol Dose [facility]] 4 mg PO ASDIR #21 tablet 07/25/20 Physical Examination Vital Signs: Vital Signs Temperature 97.5 F L 07/25/20 05:39 Pulse Rate 66 07/25/20 05:39 Respiratory Rate 19 07/25/20 05:39 Blood Pressure 139/72 07/25/20 05:39 O2 Sat by Pulse Oximetry (%) 98 07/25/20 05:39 Labs: CBC, BMP 07/25/20 05:53 07/25/20 05:53 Problem List - Problems (1) Alcohol intoxication Code(s): F10.929 - ALCOHOL USE, UNSPECIFIED WITH INTOXICATION, UNSPECIFIED Qualifiers: Complication of substance-induced condition: uncomplicated Qualified Code(s): F10.920 - Alcohol use, unspecified with intoxication, uncomplicated (2) Chronic GERD Code(s): K21.9 - GASTRO-ESOPHAGEAL REFLUX DISEASE WITHOUT ESOPHAGITIS (3) Asthma exacerbation Code(s): J45.901 - UNSPECIFIED ASTHMA WITH (ACUTE) EXACERBATION Qualifiers: Asthma severity: mild Asthma persistence: intermittent Qualified Code(s): J45.21 - Mild intermittent asthma with (acute) exacerbation (4) Burning chest pain Code(s): R07.89 - OTHER CHEST PAIN
--- NOTE | 2020-07-25 08:28 | DS ---
Physical Examination Vital Signs: Vital Signs Temperature 97.5 F L 07/25/20 05:39 Pulse Rate 66 07/25/20 05:39 Respiratory Rate 19 07/25/20 05:39 Blood Pressure 139/72 07/25/20 05:39 O2 Sat by Pulse Oximetry (%) 98 07/25/20 05:39 Constitutional: Yes: Well Nourished Eyes: Yes: EOM Intact HENT: Yes: Normocephalic Neck: Yes: Trachea Midline Cardiovascular: Yes: Regular Rate and Rhythm Respiratory: Yes: CTA Bilaterally Gastrointestinal: Yes: Normal Bowel Sounds, Soft Musculoskeletal: Yes: WNL Extremities: Yes: WNL Peripheral Pulses WNL: Yes Neurological: Yes: WNL Labs: CBC, BMP 07/25/20 05:53 07/25/20 05:53 Discharge Summary Problems reviewed: Yes Reason For Visit: CHEST PAIN Current Active Problems Alcohol intoxication (Acute) Asthma (Acute) Asthma exacerbation (Acute) Burning chest pain (Acute) Chronic GERD (Acute) Laryngospasm (Acute) Lung nodule (Acute) Tobacco abuse (Acute) Tobacco abuse counseling (Acute) Hospital Course: admitted for acute asthma exacerbation and alcohol intoxication much improved with iv stroied, ppi and fluids repeat ct chest for lung nodule in past showed stable nodule HTN-stable alcohol intoxication-resolved GERD-better stable to dc home with steroid taper and close pulm and medical follow up cont bp meds and ppi Condition: Stable - Instructions Diet, Activity, Other Instructions: call for appointment next week Referrals: Peter Simmons MD [Staff Physician] - Keyanna Haynes MD [Primary Care Provider] - Disposition: HOME - Home Medications Comprehensive Discharge Medication List: Ambulatory Orders Amlodipine Besylate [Norvasc -] 10 mg PO DAILY 10/16/12 Atorvastatin Ca [Lipitor] 10 mg PO DAILY 10/16/12 Losartan Potassium 100 mg PO DAILY 10/16/12 Omeprazole [Prilosec (RX)] 40 mg PO DAILY 10/16/12 Albuterol Sulfate [Proair Hfa -] 1 - 2 inh PO TID 02/07/15 Budesonide/Formeterol Fumarate [SYMBICORT 160/4.5mcg -] 1 inh PO BID 02/07/15 Chlorthalidone 25 mg PO DAILY 02/14/17 Albuterol 2.5/Ipratropium 0.5 [Duoneb -] 1 amp NEB RQID PRN #0 amp 07/25/20 Methylprednisolone [Medrol Dose [facility]] 4 mg PO ASDIR #21 tablet 07/25/20
[2020-07-25] MEDS: ATORVASTATIN CA 10 MG TABLET (FP) PO SCH (10:03)
[2020-07-25] MEDS: PANTOPRAZOLE 40 MG TABLET PO SCH (10:03)
[2020-07-25] MEDS: methylPREDNISolone NA SUCC 40 MG/1 ML VIAL IVPUSH SCH (10:03)
[2020-07-25] MEDS: BUDESONIDE/FORMETEROL FUMARATE 160/4.5 mcg INHALER IH SCH (10:04)
[2020-07-25] MEDS: LOSARTAN POTASSIUM 50 MG TABLET (FP) PO SCH (10:04)
[2020-07-25] MEDS: amLODIPine BESYLATE 10 MG TABLET (FP) PO SCH (10:04)
[2020-07-25 10:10] LABS: ANISOCYTOSIS 0; MACROCYTOSIS 0; PLATELET ESTIMATE NORMAL
[2020-07-25 11:22] VITALS: BP 142/88; PULSE 72; TEMP 98.2
== END 2020-07-25 11:18 | disposition home or self-care (01) | DRG 202 ==
LOC: JER 04:51 → JERBED 08:24 → J4W 18:54
PROVIDERS: ADMIT Internal Medicine; ATTEND Internal Medicine
DX: J45.21 Mild intermittent asthma with (acute) exacerbation (principal); E87.3 Alkalosis; I10 Essential (primary) hypertension; E78.5 Hyperlipidemia, unspecified; F17.210 Nicotine dependence, cigarettes, uncomplicated; R91.1 Solitary pulmonary nodule; K21.9 Gastro-esophageal reflux disease without esophagitis; R01.1 Cardiac murmur, unspecified; J38.5 Laryngeal spasm; F10.920 Alcohol use, unspecified with intoxication, uncomplicated; R07.89 Other chest pain; Z87.442 Personal history of urinary calculi
CPT/HCPCS: 36415; 36600; 71045-TC-FY; 71250-TC; 80053; 80307; 82550; 82803; 83735; 84484; 85025; 93005; 93010; 94640; 99291; U0003

== ENCOUNTER 2021-02-12 12:16 | Emergency (ER) | payer OTHER ==
[2021-02-12 12:21] VITALS: TEMP 98.3; BMI 25.4
[2021-02-12] MEDS ORDERED: ACETAMINOPHEN 500 MG TABLET (FP) PO ONE (13:40)
[2021-02-12] MEDS ORDERED: CYCLOBENZAPRINE HCL 10 MG TABLET (FP) ONE (14:01)
[2021-02-12] MEDS ORDERED: ACETAMINOPHEN 500 MG TABLET (FP) ONE (14:01)
[2021-02-12] MEDS ORDERED: CYCLOBENZAPRINE HCL 10 MG TABLET (FP) PO ONE (14:05)
[2021-02-12 15:05] VITALS: BP 170/103; PULSE 75
[2021-02-12] MEDS ORDERED: LOSARTAN POTASSIUM 50 MG TABLET PO ONE (15:06)
[2021-02-12] MEDS ORDERED: amLODIPine BESYLATE 10 MG TABLET (FP) PO ONE (15:06)
[2021-02-12] MEDS ORDERED: amLODIPine BESYLATE 5 MG TABLET (FP) ONE (15:13)
[2021-02-13] MEDS ORDERED: CYCLOBENZAPRINE HCL 5 MG TABLET PO ONE (13:41)
== END 2021-02-12 15:28 | disposition home or self-care (01) ==
LOC: FER 12:16
DX: M54.9 Dorsalgia, unspecified (principal)
CPT/HCPCS: 99284-25

== ENCOUNTER 2022-01-20 19:16 | Emergency (ER) | payer OTHER ==
[2022-01-20 19:58] VITALS: BP 145/78; PULSE 97; TEMP 98.9; BMI 26.6
[2022-01-20] MEDS ORDERED: SODIUM CHLORIDE 0.9% 1000 ML INFUS.BAG IV ONE (21:15)
[2022-01-20] MEDS ORDERED: ACETAMINOPHEN 500 MG TABLET (FP) PO ONE (21:15)
[2022-01-20] MEDS ORDERED: ACETAMINOPHEN 325 MG TABLET (FP) ONE (21:44)
[2022-01-20 22:11] LABS: PH,URINE 7.5 (5.0-8.0); URINE APPEARANCE CLEAR; URINE BILIRUBIN NEGATIVE (NEGATIVE); URINE COLOR YELLOW; URINE GLUCOSE (UA) NEGATIVE (NEGATIVE); URINE KETONE NEGATIVE (NEGATIVE); URINE LEUK ESTERASE NEGATIVE (NEGATIVE); URINE NITRITE NEGATIVE (NEGATIVE); URINE PROTEIN NEGATIVE (NEGATIVE); URINE UROBILINOGEN 0.2 mg/dL (0.2-1.0)
[2022-01-20 22:14] LABS: BASO % 0.7 % (0-2.0); EOS % 1.1 % (0-4.5); HEMATOCRIT 38.5 % (35.4-49); HEMOGLOBIN 13.3 GM/dL (11.7-16.9); LYMPH % 24.7 % (8-40); MCH 31.1 pg (25.7-33.7); MCHC 34.7 g/dl (32.0-35.9); MEAN CELL VOLUME 89.7 fl (80-96); MEAN PLT VOLUME 8.7 fl (7.5-11.1); MONO % 8.6 % (3.8-10.2); NEUT % 64.9 % (42.8-82.8); PLATELET COUNT 273 10^3/uL (134-434); RBC 4.29 M/mm3 (4.00-5.60); RDW 14.2 % (11.9-15.9); WHITE BLOOD COUNT 14.2 K/mm3 (4.0-10.0)
[2022-01-20 22:31] LABS: CALCIUM 9.9 mg/dL (8.5-10.1)
[2022-01-20 22:32] LABS: ALBUMIN 4.5 g/dl (3.4-5.0); BLOOD UREA NITROGEN 15.4 mg/dL (7-18); MAGNESIUM 2.2 mg/dL (1.8-2.4)
[2022-01-20 22:37] LABS: BILIRUBIN,TOTAL 0.3 mg/dL (0.2-1)
== END 2022-01-21 00:34 | disposition home or self-care (01) ==
LOC: JER 19:16
DX: R10.32 Left lower quadrant pain (principal)
CPT/HCPCS: 36415; 74177-TC; 80053; 81003; 83690; 83735; 85025; 87086; 99285-25

== ENCOUNTER 2022-02-01 08:56 | Inpatient (IN) | payer OTHER ==
[2022-02-01] MEDS ORDERED: MAG HYDROX/AL HYDROX/SIMETH 30 ML UNIT-DOSE CUP PO PRN (09:48)
[2022-02-01] MEDS ORDERED: MAGNESIUM CITRATE 300 ML BOTTLE PO PRN (09:48)
[2022-02-01] MEDS ORDERED: LOPERAMIDE HCL 2 MG CAPSULE PO PRN (09:48)
[2022-02-01] MEDS ORDERED: guaiFENesin 200 MG/10 ML 10 ML UNIT-DOSE CUPS PO PRN (09:48)
[2022-02-01] MEDS ORDERED: MAGNESIUM HYDROX 2400MG/30ML ORAL SUSPENSION 30 ML CUP PO PRN (09:48)
[2022-02-01] MEDS ORDERED: ACETAMINOPHEN 325 MG TABLET (FP) PO PRN (09:48)
[2022-02-01] MEDS ORDERED: P-EPHED 60MG/TRIPROLIDI 2.5MG TABLET PO PRN (09:48)
[2022-02-01 10:21] VITALS: BMI 27.1
[2022-02-01] MEDS ORDERED: TUBERCULIN PPD 5 TU/0.1ML VIAL ID ONE (13:09)
[2022-02-01] MEDS: NICOTINE 7 MG/24 HOURS TOPICAL PATCH TD SCH (13:10)
[2022-02-01] MEDS: PRENATAL VITAMINS W/ FOLIC ACID TABLET (FP) PO SCH (13:10)
[2022-02-01] MEDS: amLODIPine BESYLATE 10 MG TABLET (FP) PO SCH (13:11)
[2022-02-01] MEDS: LOSARTAN POTASSIUM 50 MG TABLET PO SCH (13:11)
[2022-02-01] MEDS: hydrOXYzine PAMOATE 25 MG CAPSULE (FP) PO SCH ×4 (13:11→22:04)
[2022-02-01] MEDS: ATORVASTATIN CA 10 MG TABLET (FP) PO SCH (13:11)
[2022-02-01 14:55] LABS: HEMATOCRIT 37.8 % (35.4-49); HEMOGLOBIN 12.9 GM/dL (11.7-16.9); MCHC 34.1 g/dl (32.0-35.9); MEAN PLT VOLUME 8.4 fl (7.5-11.1); PLATELET COUNT 288 10^3/uL (134-434); RBC 4.15 M/mm3 (4.00-5.60); RDW 14.5 % (11.9-15.9); WHITE BLOOD COUNT 6.9 K/mm3 (4.0-10.0)
[2022-02-01 15:02] LABS: CALCIUM 9.2 mg/dL (8.5-10.1)
[2022-02-01 15:03] LABS: ALBUMIN 3.8 g/dl (3.4-5.0); BLOOD UREA NITROGEN 12.2 mg/dL (7-18)
[2022-02-01 15:06] LABS: CREATININE 0.8 mg/dL (0.55-1.3)
[2022-02-01 15:08] LABS: BILIRUBIN,TOTAL 0.4 mg/dL (0.2-1); TOT PROT 6.8 g/dl (6.4-8.2)
[2022-02-01 15:22] LABS: SYPHILIS W/ RPR CONF NON-REACTIVE (NONREACTIVE)
[2022-02-01] MEDS: THIAMINE HCL 100 MG TABLET (FP) PO SCH (22:02)
[2022-02-01] MEDS: MELATONIN 5 MG TABLETS PO SCH (22:02)
[2022-02-02 06:08] LABS: SARS-CoV-2 NAA Not Detected (Not Detected)
[2022-02-02] MEDS: hydrOXYzine PAMOATE 25 MG CAPSULE (FP) PO SCH ×3 (06:31→13:51)
[2022-02-02] MEDS: NICOTINE 7 MG/24 HOURS TOPICAL PATCH TD SCH (10:33)
[2022-02-02] MEDS: PRENATAL VITAMINS W/ FOLIC ACID TABLET (FP) PO SCH (10:34)
[2022-02-02] MEDS: PANTOPRAZOLE 40 MG TABLET PO SCH (10:34)
[2022-02-02] MEDS: ATORVASTATIN CA 10 MG TABLET (FP) PO SCH (10:34)
[2022-02-02] MEDS: LOSARTAN POTASSIUM 50 MG TABLET PO SCH (10:35)
[2022-02-02] MEDS: amLODIPine BESYLATE 10 MG TABLET (FP) PO SCH (10:35)
[2022-02-02] MEDS: MELATONIN 5 MG TABLETS PO SCH (21:10)
[2022-02-02] MEDS: THIAMINE HCL 100 MG TABLET (FP) PO SCH (21:10)
[2022-02-03 08:08] LABS: SARS-CoV-2 NAA Not Detected (Not Detected)
[2022-02-03] MEDS: NICOTINE 7 MG/24 HOURS TOPICAL PATCH TD SCH (09:41)
[2022-02-03] MEDS: LOSARTAN POTASSIUM 50 MG TABLET PO SCH (09:42)
[2022-02-03] MEDS: amLODIPine BESYLATE 10 MG TABLET (FP) PO SCH (09:42)
[2022-02-03] MEDS: PRENATAL VITAMINS W/ FOLIC ACID TABLET (FP) PO SCH (09:42)
[2022-02-03] MEDS: PANTOPRAZOLE 40 MG TABLET PO SCH (09:42)
[2022-02-03] MEDS: ATORVASTATIN CA 10 MG TABLET (FP) PO SCH (09:42)
[2022-02-03 11:03] LABS: URINE APPEARANCE CLEAR; URINE BILIRUBIN NEGATIVE (NEGATIVE); URINE COLOR YELLOW; URINE GLUCOSE (UA) NEGATIVE (NEGATIVE); URINE KETONE NEGATIVE (NEGATIVE); URINE LEUK ESTERASE NEGATIVE (NEGATIVE); URINE NITRITE NEGATIVE (NEGATIVE); URINE PROTEIN NEGATIVE (NEGATIVE)
[2022-02-03] MEDS: MELATONIN 5 MG TABLETS PO SCH (21:16)
[2022-02-03] MEDS: THIAMINE HCL 100 MG TABLET (FP) PO SCH (21:17)
[2022-02-03] MEDS: hydrOXYzine PAMOATE 25 MG CAPSULE (FP) PO PRN (21:17)
[2022-02-04] MEDS: ATORVASTATIN CA 10 MG TABLET (FP) PO SCH (09:34)
[2022-02-04] MEDS: LOSARTAN POTASSIUM 50 MG TABLET PO SCH (09:34)
[2022-02-04] MEDS: PRENATAL VITAMINS W/ FOLIC ACID TABLET (FP) PO SCH (09:34)
[2022-02-04] MEDS: amLODIPine BESYLATE 10 MG TABLET (FP) PO SCH (09:34)
[2022-02-04] MEDS: PANTOPRAZOLE 40 MG TABLET PO SCH (09:34)
[2022-02-04] MEDS: NICOTINE 7 MG/24 HOURS TOPICAL PATCH TD SCH (09:35)
[2022-02-04] MEDS: THIAMINE HCL 100 MG TABLET (FP) PO SCH (21:33)
[2022-02-04] MEDS: MELATONIN 5 MG TABLETS PO SCH (21:33)
[2022-02-05] MEDS: PRENATAL VITAMINS W/ FOLIC ACID TABLET (FP) PO SCH (09:32)
[2022-02-05] MEDS: LOSARTAN POTASSIUM 50 MG TABLET PO SCH (09:32)
[2022-02-05] MEDS: ATORVASTATIN CA 10 MG TABLET (FP) PO SCH (09:32)
[2022-02-05] MEDS: NICOTINE 7 MG/24 HOURS TOPICAL PATCH TD SCH (09:33)
[2022-02-05] MEDS: amLODIPine BESYLATE 10 MG TABLET (FP) PO SCH (09:33)
[2022-02-05] MEDS: PANTOPRAZOLE 40 MG TABLET PO SCH (09:33)
[2022-02-05] MEDS: IBUPROFEN 400 MG TABLET (FP) PO PRN (11:18)
[2022-02-05] MEDS: THIAMINE HCL 100 MG TABLET (FP) PO SCH (21:22)
[2022-02-05] MEDS: MELATONIN 5 MG TABLETS PO SCH (21:22)
[2022-02-05] MEDS: FAMOTIDINE 20 MG TABLET PO SCH (21:23)
[2022-02-06] MEDS: IBUPROFEN 400 MG TABLET (FP) PO PRN (08:57)
[2022-02-06] MEDS: ATORVASTATIN CA 10 MG TABLET (FP) PO SCH (09:00)
[2022-02-06] MEDS: NICOTINE 7 MG/24 HOURS TOPICAL PATCH TD SCH (09:00)
[2022-02-06] MEDS: LOSARTAN POTASSIUM 50 MG TABLET PO SCH (09:00)
[2022-02-06] MEDS: amLODIPine BESYLATE 10 MG TABLET (FP) PO SCH (09:00)
[2022-02-06] MEDS: FAMOTIDINE 20 MG TABLET PO SCH ×2 (09:00→21:14)
[2022-02-06] MEDS: PRENATAL VITAMINS W/ FOLIC ACID TABLET (FP) PO SCH (09:01)
[2022-02-06] MEDS ORDERED: IBUPROFEN 400 MG TABLET (FP) PO PRN (12:05)
[2022-02-06] MEDS: hydrOXYzine PAMOATE 25 MG CAPSULE (FP) PO PRN (21:14)
[2022-02-06] MEDS: THIAMINE HCL 100 MG TABLET (FP) PO SCH (21:14)
[2022-02-06] MEDS: MELATONIN 5 MG TABLETS PO SCH (21:14)
[2022-02-07] MEDS: IBUPROFEN 600 MG TABLET (FP) PO PRN ×3 (08:38→21:24)
[2022-02-07] MEDS: LOSARTAN POTASSIUM 50 MG TABLET PO SCH (09:40)
[2022-02-07] MEDS: FAMOTIDINE 20 MG TABLET PO SCH ×2 (09:40→21:24)
[2022-02-07] MEDS: PRENATAL VITAMINS W/ FOLIC ACID TABLET (FP) PO SCH (09:41)
[2022-02-07] MEDS: ATORVASTATIN CA 10 MG TABLET (FP) PO SCH (09:41)
[2022-02-07] MEDS: NICOTINE 7 MG/24 HOURS TOPICAL PATCH TD SCH (09:41)
[2022-02-07] MEDS: amLODIPine BESYLATE 10 MG TABLET (FP) PO SCH (09:41)
[2022-02-07] MEDS: NICOTINE 10 MG CARTRIDGE (INHALER) IH PRN ×2 (09:42→21:24)
[2022-02-07] MEDS: THIAMINE HCL 100 MG TABLET (FP) PO SCH (21:24)
[2022-02-07] MEDS: MELATONIN 5 MG TABLETS PO SCH (21:26)
[2022-02-08] MEDS: IBUPROFEN 600 MG TABLET (FP) PO PRN ×2 (07:49→21:13)
[2022-02-08] MEDS: LOSARTAN POTASSIUM 50 MG TABLET PO SCH (09:45)
[2022-02-08] MEDS: FAMOTIDINE 20 MG TABLET PO SCH ×2 (09:46→21:13)
[2022-02-08] MEDS: ATORVASTATIN CA 10 MG TABLET (FP) PO SCH (09:46)
[2022-02-08] MEDS: NICOTINE 7 MG/24 HOURS TOPICAL PATCH TD SCH (09:46)
[2022-02-08] MEDS: amLODIPine BESYLATE 10 MG TABLET (FP) PO SCH (09:46)
[2022-02-08] MEDS: PRENATAL VITAMINS W/ FOLIC ACID TABLET (FP) PO SCH (09:46)
[2022-02-08] MEDS: THIAMINE HCL 100 MG TABLET (FP) PO SCH (21:13)
[2022-02-08] MEDS: MELATONIN 5 MG TABLETS PO SCH (21:13)
[2022-02-09] MEDS: LOSARTAN POTASSIUM 50 MG TABLET PO SCH (09:04)
[2022-02-09] MEDS: ATORVASTATIN CA 10 MG TABLET (FP) PO SCH (09:04)
[2022-02-09] MEDS: FAMOTIDINE 20 MG TABLET PO SCH ×2 (09:04→21:17)
[2022-02-09] MEDS: amLODIPine BESYLATE 10 MG TABLET (FP) PO SCH (09:04)
[2022-02-09] MEDS: PRENATAL VITAMINS W/ FOLIC ACID TABLET (FP) PO SCH (09:05)
[2022-02-09] MEDS: NICOTINE 7 MG/24 HOURS TOPICAL PATCH TD SCH (09:05)
[2022-02-09] MEDS: ALBUTEROL SO4 HFA INHALER IH PRN (09:07)
[2022-02-09] MEDS: IBUPROFEN 600 MG TABLET (FP) PO PRN (17:41)
[2022-02-09] MEDS: NICOTINE 10 MG CARTRIDGE (INHALER) IH PRN ×2 (17:41→22:57)
[2022-02-09] MEDS: hydrOXYzine PAMOATE 25 MG CAPSULE (FP) PO PRN (21:17)
[2022-02-09] MEDS: MELATONIN 5 MG TABLETS PO SCH (21:17)
[2022-02-09] MEDS: THIAMINE HCL 100 MG TABLET (FP) PO SCH (21:17)
[2022-02-10] MEDS: NICOTINE 7 MG/24 HOURS TOPICAL PATCH TD SCH (09:58)
[2022-02-10] MEDS: ATORVASTATIN CA 10 MG TABLET (FP) PO SCH (09:58)
[2022-02-10] MEDS: LOSARTAN POTASSIUM 50 MG TABLET PO SCH (09:58)
[2022-02-10] MEDS: NICOTINE 10 MG CARTRIDGE (INHALER) IH PRN ×2 (09:59→21:11)
[2022-02-10] MEDS: PRENATAL VITAMINS W/ FOLIC ACID TABLET (FP) PO SCH (09:59)
[2022-02-10] MEDS: amLODIPine BESYLATE 10 MG TABLET (FP) PO SCH (09:59)
[2022-02-10] MEDS: FAMOTIDINE 20 MG TABLET PO SCH ×2 (09:59→21:12)
[2022-02-10] MEDS: BUDESONIDE/FORMETEROL FUMARATE 160/4.5 mcg INHALER IH PRN (21:11)
[2022-02-10] MEDS: IBUPROFEN 600 MG TABLET (FP) PO PRN (21:12)
[2022-02-10] MEDS: MELATONIN 5 MG TABLETS PO SCH (21:12)
[2022-02-10] MEDS: hydrOXYzine PAMOATE 25 MG CAPSULE (FP) PO PRN (21:12)
[2022-02-10] MEDS: THIAMINE HCL 100 MG TABLET (FP) PO SCH (21:12)
[2022-02-11] MEDS: NICOTINE 7 MG/24 HOURS TOPICAL PATCH TD SCH (10:10)
[2022-02-11] MEDS: ALBUTEROL SO4 HFA INHALER IH PRN ×2 (10:10→21:21)
[2022-02-11] MEDS: FAMOTIDINE 20 MG TABLET PO SCH ×2 (10:11→21:22)
[2022-02-11] MEDS: ATORVASTATIN CA 10 MG TABLET (FP) PO SCH (10:11)
[2022-02-11] MEDS: PRENATAL VITAMINS W/ FOLIC ACID TABLET (FP) PO SCH (10:11)
[2022-02-11] MEDS: amLODIPine BESYLATE 10 MG TABLET (FP) PO SCH (10:11)
[2022-02-11] MEDS: LOSARTAN POTASSIUM 50 MG TABLET PO SCH (10:11)
[2022-02-11] MEDS: LIDOCAINE 5% TOPICAL PATCH TP SCH (17:57)
[2022-02-11] MEDS: IBUPROFEN 600 MG TABLET (FP) PO PRN (17:58)
[2022-02-11] MEDS: MELATONIN 5 MG TABLETS PO SCH (21:22)
[2022-02-11] MEDS: THIAMINE HCL 100 MG TABLET (FP) PO SCH (21:22)
[2022-02-11] MEDS: METHYL SALICYLATE/MENTHOL OINT 30 GM TUBE TP SCH (21:23)
[2022-02-11] MEDS: NICOTINE 10 MG CARTRIDGE (INHALER) IH PRN (21:24)
[2022-02-11] MEDS: LIDOCAINE PATCH REMOVAL MC SCH (21:24)
[2022-02-12] MEDS: FAMOTIDINE 20 MG TABLET PO SCH ×2 (10:27→21:40)
[2022-02-12] MEDS: PRENATAL VITAMINS W/ FOLIC ACID TABLET (FP) PO SCH (10:27)
[2022-02-12] MEDS: LIDOCAINE 5% TOPICAL PATCH TP SCH (10:27)
[2022-02-12] MEDS: LOSARTAN POTASSIUM 50 MG TABLET PO SCH (10:27)
[2022-02-12] MEDS: ATORVASTATIN CA 10 MG TABLET (FP) PO SCH (10:27)
[2022-02-12] MEDS: amLODIPine BESYLATE 10 MG TABLET (FP) PO SCH (10:27)
[2022-02-12] MEDS: NICOTINE 7 MG/24 HOURS TOPICAL PATCH TD SCH (10:28)
[2022-02-12] MEDS: NICOTINE 10 MG CARTRIDGE (INHALER) IH PRN ×2 (10:28→21:39)
[2022-02-12] MEDS: METHYL SALICYLATE/MENTHOL OINT 30 GM TUBE TP SCH (21:39)
[2022-02-12] MEDS: MELATONIN 5 MG TABLETS PO SCH (21:40)
[2022-02-12] MEDS: THIAMINE HCL 100 MG TABLET (FP) PO SCH (21:40)
[2022-02-12] MEDS: hydrOXYzine PAMOATE 25 MG CAPSULE (FP) PO PRN (21:40)
[2022-02-12] MEDS: LIDOCAINE PATCH REMOVAL MC SCH (21:40)
[2022-02-12] MEDS: BUDESONIDE/FORMETEROL FUMARATE 160/4.5 mcg INHALER IH PRN (21:40)
[2022-02-13] MEDS: NICOTINE 7 MG/24 HOURS TOPICAL PATCH TD SCH (09:17)
[2022-02-13] MEDS: ATORVASTATIN CA 10 MG TABLET (FP) PO SCH (09:17)
[2022-02-13] MEDS: LIDOCAINE 5% TOPICAL PATCH TP SCH (09:17)
[2022-02-13] MEDS: LOSARTAN POTASSIUM 50 MG TABLET PO SCH (09:17)
[2022-02-13] MEDS: PRENATAL VITAMINS W/ FOLIC ACID TABLET (FP) PO SCH (09:18)
[2022-02-13] MEDS: FAMOTIDINE 20 MG TABLET PO SCH ×2 (09:18→21:15)
[2022-02-13] MEDS: amLODIPine BESYLATE 10 MG TABLET (FP) PO SCH (09:18)
[2022-02-13] MEDS: IBUPROFEN 600 MG TABLET (FP) PO PRN ×2 (09:19→21:14)
[2022-02-13] MEDS: NICOTINE 10 MG CARTRIDGE (INHALER) IH PRN (11:45)
[2022-02-13] MEDS: METHYL SALICYLATE/MENTHOL OINT 30 GM TUBE TP SCH (21:13)
[2022-02-13] MEDS: LIDOCAINE PATCH REMOVAL MC SCH (21:13)
[2022-02-13] MEDS: MELATONIN 5 MG TABLETS PO SCH (21:13)
[2022-02-13] MEDS: THIAMINE HCL 100 MG TABLET (FP) PO SCH (21:13)
[2022-02-13] MEDS: BUDESONIDE/FORMETEROL FUMARATE 160/4.5 mcg INHALER IH PRN (21:15)
[2022-02-14] MEDS: PRENATAL VITAMINS W/ FOLIC ACID TABLET (FP) PO SCH (09:42)
[2022-02-14] MEDS: LIDOCAINE 5% TOPICAL PATCH TP SCH (09:42)
[2022-02-14] MEDS: FAMOTIDINE 20 MG TABLET PO SCH ×2 (09:42→21:09)
[2022-02-14] MEDS: LOSARTAN POTASSIUM 50 MG TABLET PO SCH (09:42)
[2022-02-14] MEDS: ATORVASTATIN CA 10 MG TABLET (FP) PO SCH (09:42)
[2022-02-14] MEDS: amLODIPine BESYLATE 10 MG TABLET (FP) PO SCH (09:42)
[2022-02-14] MEDS: NICOTINE 7 MG/24 HOURS TOPICAL PATCH TD SCH (09:43)
[2022-02-14] MEDS: NICOTINE 10 MG CARTRIDGE (INHALER) IH PRN ×3 (12:16→21:10)
[2022-02-14] MEDS: LIDOCAINE PATCH REMOVAL MC SCH (21:09)
[2022-02-14] MEDS: MELATONIN 5 MG TABLETS PO SCH (21:09)
[2022-02-14] MEDS: METHYL SALICYLATE/MENTHOL OINT 30 GM TUBE TP SCH (21:09)
[2022-02-14] MEDS: THIAMINE HCL 100 MG TABLET (FP) PO SCH (21:09)
[2022-02-15] MEDS ORDERED: COLLOIDAL OATMEAL 1 BAR EACH TP PRN (08:37)
[2022-02-15] MEDS: LOSARTAN POTASSIUM 50 MG TABLET PO SCH (09:48)
[2022-02-15] MEDS: LIDOCAINE 5% TOPICAL PATCH TP SCH (09:48)
[2022-02-15] MEDS: FAMOTIDINE 20 MG TABLET PO SCH ×2 (09:49→21:35)
[2022-02-15] MEDS: amLODIPine BESYLATE 10 MG TABLET (FP) PO SCH (09:49)
[2022-02-15] MEDS: ATORVASTATIN CA 10 MG TABLET (FP) PO SCH (09:49)
[2022-02-15] MEDS: PRENATAL VITAMINS W/ FOLIC ACID TABLET (FP) PO SCH (09:49)
[2022-02-15] MEDS: NICOTINE 7 MG/24 HOURS TOPICAL PATCH TD SCH (09:49)
[2022-02-15] MEDS: IBUPROFEN 600 MG TABLET (FP) PO PRN (09:50)
[2022-02-15] MEDS: NICOTINE 10 MG CARTRIDGE (INHALER) IH PRN (16:37)
[2022-02-15] MEDS: THIAMINE HCL 100 MG TABLET (FP) PO SCH (21:34)
[2022-02-15] MEDS: METHYL SALICYLATE/MENTHOL OINT 30 GM TUBE TP SCH (21:34)
[2022-02-15] MEDS: LIDOCAINE PATCH REMOVAL MC SCH (21:34)
[2022-02-15] MEDS: MELATONIN 5 MG TABLETS PO SCH (21:34)
[2022-02-16] MEDS: FAMOTIDINE 20 MG TABLET PO SCH ×2 (10:01→21:35)
[2022-02-16] MEDS: amLODIPine BESYLATE 10 MG TABLET (FP) PO SCH (10:01)
[2022-02-16] MEDS: LOSARTAN POTASSIUM 50 MG TABLET PO SCH (10:01)
[2022-02-16] MEDS: PRENATAL VITAMINS W/ FOLIC ACID TABLET (FP) PO SCH (10:01)
[2022-02-16] MEDS: ATORVASTATIN CA 10 MG TABLET (FP) PO SCH (10:01)
[2022-02-16] MEDS: NICOTINE 7 MG/24 HOURS TOPICAL PATCH TD SCH (10:02)
[2022-02-16] MEDS: LIDOCAINE 5% TOPICAL PATCH TP SCH (10:02)
[2022-02-16] MEDS: IBUPROFEN 600 MG TABLET (FP) PO PRN (10:02)
[2022-02-16] MEDS: NICOTINE 10 MG CARTRIDGE (INHALER) IH PRN (10:02)
[2022-02-16] MEDS: LIDOCAINE PATCH REMOVAL MC SCH (21:35)
[2022-02-16] MEDS: THIAMINE HCL 100 MG TABLET (FP) PO SCH (21:35)
[2022-02-16] MEDS: METHYL SALICYLATE/MENTHOL OINT 30 GM TUBE TP SCH (21:35)
[2022-02-16] MEDS: MELATONIN 5 MG TABLETS PO SCH (21:35)
[2022-02-16] MEDS: BUDESONIDE/FORMETEROL FUMARATE 160/4.5 mcg INHALER IH PRN (21:35)
[2022-02-17] MEDS: LIDOCAINE 5% TOPICAL PATCH TP SCH (09:50)
[2022-02-17] MEDS: amLODIPine BESYLATE 10 MG TABLET (FP) PO SCH (09:51)
[2022-02-17] MEDS: FAMOTIDINE 20 MG TABLET PO SCH ×2 (09:51→21:32)
[2022-02-17] MEDS: PRENATAL VITAMINS W/ FOLIC ACID TABLET (FP) PO SCH (09:51)
[2022-02-17] MEDS: NICOTINE 10 MG CARTRIDGE (INHALER) IH PRN ×2 (09:51→21:03)
[2022-02-17] MEDS: ATORVASTATIN CA 10 MG TABLET (FP) PO SCH (09:51)
[2022-02-17] MEDS: LOSARTAN POTASSIUM 50 MG TABLET PO SCH (09:52)
[2022-02-17] MEDS: NICOTINE 7 MG/24 HOURS TOPICAL PATCH TD SCH (09:52)
[2022-02-17] MEDS: MELATONIN 5 MG TABLETS PO SCH (21:03)
[2022-02-17] MEDS: THIAMINE HCL 100 MG TABLET (FP) PO SCH (21:03)
[2022-02-17] MEDS: LIDOCAINE PATCH REMOVAL MC SCH (21:32)
[2022-02-17] MEDS: METHYL SALICYLATE/MENTHOL OINT 30 GM TUBE TP SCH (21:32)
[2022-02-18] MEDS: LIDOCAINE 5% TOPICAL PATCH TP SCH (09:49)
[2022-02-18] MEDS: FAMOTIDINE 20 MG TABLET PO SCH ×2 (09:49→21:32)
[2022-02-18] MEDS: ATORVASTATIN CA 10 MG TABLET (FP) PO SCH (09:49)
[2022-02-18] MEDS: LOSARTAN POTASSIUM 50 MG TABLET PO SCH (09:49)
[2022-02-18] MEDS: NICOTINE 7 MG/24 HOURS TOPICAL PATCH TD SCH (09:50)
[2022-02-18] MEDS: PRENATAL VITAMINS W/ FOLIC ACID TABLET (FP) PO SCH (09:50)
[2022-02-18] MEDS: amLODIPine BESYLATE 10 MG TABLET (FP) PO SCH (09:50)
[2022-02-18] MEDS: IBUPROFEN 600 MG TABLET (FP) PO PRN (14:02)
[2022-02-18] MEDS: NICOTINE 10 MG CARTRIDGE (INHALER) IH PRN (17:56)
[2022-02-18] MEDS: MELATONIN 5 MG TABLETS PO SCH (21:32)
[2022-02-18] MEDS: THIAMINE HCL 100 MG TABLET (FP) PO SCH (21:32)
[2022-02-18] MEDS: LIDOCAINE PATCH REMOVAL MC SCH (21:33)
[2022-02-18] MEDS: METHYL SALICYLATE/MENTHOL OINT 30 GM TUBE TP SCH (21:33)
[2022-02-18] MEDS: ALBUTEROL SO4 HFA INHALER IH PRN (21:34)
[2022-02-19] MEDS: HYDROCHLOROTHIAZIDE 12.5 MG CAPSULE (FP) PO SCH (09:09)
[2022-02-19] MEDS: amLODIPine BESYLATE 10 MG TABLET (FP) PO SCH (09:09)
[2022-02-19] MEDS: FAMOTIDINE 20 MG TABLET PO SCH ×2 (09:09→21:20)
[2022-02-19] MEDS: PRENATAL VITAMINS W/ FOLIC ACID TABLET (FP) PO SCH (09:09)
[2022-02-19] MEDS: LOSARTAN POTASSIUM 50 MG TABLET PO SCH (09:09)
[2022-02-19] MEDS: LIDOCAINE 5% TOPICAL PATCH TP SCH (09:09)
[2022-02-19] MEDS: ATORVASTATIN CA 10 MG TABLET (FP) PO SCH (09:09)
[2022-02-19] MEDS: NICOTINE 10 MG CARTRIDGE (INHALER) IH PRN ×2 (09:10→21:20)
[2022-02-19] MEDS: NICOTINE 7 MG/24 HOURS TOPICAL PATCH TD SCH (09:10)
[2022-02-19] MEDS: ALBUTEROL SO4 HFA INHALER IH PRN (09:11)
[2022-02-19] MEDS: THIAMINE HCL 100 MG TABLET (FP) PO SCH (21:20)
[2022-02-19] MEDS: LIDOCAINE PATCH REMOVAL MC SCH (21:21)
[2022-02-19] MEDS: MELATONIN 5 MG TABLETS PO SCH (21:21)
[2022-02-19] MEDS: METHYL SALICYLATE/MENTHOL OINT 30 GM TUBE TP SCH (21:21)
[2022-02-20] MEDS: IBUPROFEN 600 MG TABLET (FP) PO PRN ×2 (01:10→21:21)
[2022-02-20] MEDS: LIDOCAINE 5% TOPICAL PATCH TP SCH (09:59)
[2022-02-20] MEDS: NICOTINE 7 MG/24 HOURS TOPICAL PATCH TD SCH (09:59)
[2022-02-20] MEDS: ATORVASTATIN CA 10 MG TABLET (FP) PO SCH (10:00)
[2022-02-20] MEDS: FAMOTIDINE 20 MG TABLET PO SCH ×2 (10:00→21:20)
[2022-02-20] MEDS: amLODIPine BESYLATE 10 MG TABLET (FP) PO SCH (10:00)
[2022-02-20] MEDS: LOSARTAN POTASSIUM 50 MG TABLET PO SCH (10:00)
[2022-02-20] MEDS: HYDROCHLOROTHIAZIDE 12.5 MG CAPSULE (FP) PO SCH (10:00)
[2022-02-20] MEDS: PRENATAL VITAMINS W/ FOLIC ACID TABLET (FP) PO SCH (10:00)
[2022-02-20] MEDS: ALBUTEROL SO4 HFA INHALER IH PRN (10:01)
[2022-02-20] MEDS: THIAMINE HCL 100 MG TABLET (FP) PO SCH (21:21)
[2022-02-20] MEDS: MELATONIN 5 MG TABLETS PO SCH (21:21)
[2022-02-20] MEDS: METHYL SALICYLATE/MENTHOL OINT 30 GM TUBE TP SCH (21:21)
[2022-02-20] MEDS: BUDESONIDE/FORMETEROL FUMARATE 160/4.5 mcg INHALER IH PRN (21:21)
[2022-02-20] MEDS: LIDOCAINE PATCH REMOVAL MC SCH (21:49)
[2022-02-21] MEDS: IBUPROFEN 600 MG TABLET (FP) PO PRN ×2 (08:04→17:52)
[2022-02-21] MEDS: HYDROCHLOROTHIAZIDE 12.5 MG CAPSULE (FP) PO SCH (09:41)
[2022-02-21] MEDS: PRENATAL VITAMINS W/ FOLIC ACID TABLET (FP) PO SCH (09:41)
[2022-02-21] MEDS: NICOTINE 10 MG CARTRIDGE (INHALER) IH PRN (09:41)
[2022-02-21] MEDS: LIDOCAINE 5% TOPICAL PATCH TP SCH (09:41)
[2022-02-21] MEDS: LOSARTAN POTASSIUM 50 MG TABLET PO SCH (09:42)
[2022-02-21] MEDS: NICOTINE 7 MG/24 HOURS TOPICAL PATCH TD SCH (09:42)
[2022-02-21] MEDS: FAMOTIDINE 20 MG TABLET PO SCH ×2 (09:42→21:16)
[2022-02-21] MEDS: amLODIPine BESYLATE 10 MG TABLET (FP) PO SCH (09:42)
[2022-02-21] MEDS: ATORVASTATIN CA 10 MG TABLET (FP) PO SCH (09:42)
[2022-02-21] MEDS: MELATONIN 5 MG TABLETS PO SCH (21:16)
[2022-02-21] MEDS: LIDOCAINE PATCH REMOVAL MC SCH (21:16)
[2022-02-21] MEDS: BUDESONIDE/FORMETEROL FUMARATE 160/4.5 mcg INHALER IH PRN (21:16)
[2022-02-21] MEDS: THIAMINE HCL 100 MG TABLET (FP) PO SCH (21:16)
[2022-02-21] MEDS: METHYL SALICYLATE/MENTHOL OINT 30 GM TUBE TP SCH (21:17)
[2022-02-22] MEDS: LOSARTAN POTASSIUM 50 MG TABLET PO SCH (09:54)
[2022-02-22] MEDS: amLODIPine BESYLATE 10 MG TABLET (FP) PO SCH (09:55)
[2022-02-22] MEDS: NICOTINE 7 MG/24 HOURS TOPICAL PATCH TD SCH (09:55)
[2022-02-22] MEDS: LIDOCAINE 5% TOPICAL PATCH TP SCH (09:55)
[2022-02-22] MEDS: ATORVASTATIN CA 10 MG TABLET (FP) PO SCH (09:55)
[2022-02-22] MEDS: HYDROCHLOROTHIAZIDE 12.5 MG CAPSULE (FP) PO SCH (09:55)
[2022-02-22] MEDS: FAMOTIDINE 20 MG TABLET PO SCH ×2 (09:55→21:20)
[2022-02-22] MEDS: NICOTINE 10 MG CARTRIDGE (INHALER) IH PRN (09:56)
[2022-02-22] MEDS: PRENATAL VITAMINS W/ FOLIC ACID TABLET (FP) PO SCH (09:56)
[2022-02-22] MEDS: LIDOCAINE PATCH REMOVAL MC SCH (21:18)
[2022-02-22] MEDS: MELATONIN 5 MG TABLETS PO SCH (21:18)
[2022-02-22] MEDS: THIAMINE HCL 100 MG TABLET (FP) PO SCH (21:18)
[2022-02-22] MEDS: METHYL SALICYLATE/MENTHOL OINT 30 GM TUBE TP SCH (21:19)
[2022-02-22] MEDS: IBUPROFEN 600 MG TABLET (FP) PO PRN (21:20)
[2022-02-23] MEDS: PRENATAL VITAMINS W/ FOLIC ACID TABLET (FP) PO SCH (10:04)
[2022-02-23] MEDS: HYDROCHLOROTHIAZIDE 12.5 MG CAPSULE (FP) PO SCH (10:04)
[2022-02-23] MEDS: LIDOCAINE 5% TOPICAL PATCH TP SCH (10:05)
[2022-02-23] MEDS: amLODIPine BESYLATE 10 MG TABLET (FP) PO SCH (10:05)
[2022-02-23] MEDS: ATORVASTATIN CA 10 MG TABLET (FP) PO SCH (10:05)
[2022-02-23] MEDS: NICOTINE 7 MG/24 HOURS TOPICAL PATCH TD SCH (10:05)
[2022-02-23] MEDS: FAMOTIDINE 20 MG TABLET PO SCH ×2 (10:05→21:33)
[2022-02-23] MEDS: LOSARTAN POTASSIUM 50 MG TABLET PO SCH (10:05)
[2022-02-23] MEDS: IBUPROFEN 600 MG TABLET (FP) PO PRN ×2 (10:06→18:46)
[2022-02-23] MEDS: MELATONIN 5 MG TABLETS PO SCH (21:33)
[2022-02-23] MEDS: THIAMINE HCL 100 MG TABLET (FP) PO SCH (21:33)
[2022-02-23] MEDS: METHYL SALICYLATE/MENTHOL OINT 30 GM TUBE TP SCH (21:34)
[2022-02-23] MEDS: LIDOCAINE PATCH REMOVAL MC SCH (21:34)
[2022-02-24] MEDS: LOSARTAN POTASSIUM 50 MG TABLET PO SCH (09:33)
[2022-02-24] MEDS: LIDOCAINE 5% TOPICAL PATCH TP SCH (09:33)
[2022-02-24] MEDS: HYDROCHLOROTHIAZIDE 12.5 MG CAPSULE (FP) PO SCH (09:33)
[2022-02-24] MEDS: amLODIPine BESYLATE 10 MG TABLET (FP) PO SCH (09:34)
[2022-02-24] MEDS: FAMOTIDINE 20 MG TABLET PO SCH ×2 (09:34→21:20)
[2022-02-24] MEDS: ATORVASTATIN CA 10 MG TABLET (FP) PO SCH (09:34)
[2022-02-24] MEDS: NICOTINE 7 MG/24 HOURS TOPICAL PATCH TD SCH (09:34)
[2022-02-24] MEDS: IBUPROFEN 600 MG TABLET (FP) PO PRN (09:35)
[2022-02-24] MEDS: PRENATAL VITAMINS W/ FOLIC ACID TABLET (FP) PO SCH (09:36)
[2022-02-24] MEDS: METHYL SALICYLATE/MENTHOL OINT 30 GM TUBE TP SCH (21:20)
[2022-02-24] MEDS: MELATONIN 5 MG TABLETS PO SCH (21:20)
[2022-02-24] MEDS: NICOTINE 10 MG CARTRIDGE (INHALER) IH PRN (21:20)
[2022-02-24] MEDS: THIAMINE HCL 100 MG TABLET (FP) PO SCH (21:20)
[2022-02-24] MEDS: LIDOCAINE PATCH REMOVAL MC SCH (21:21)
[2022-02-25] MEDS: LOSARTAN POTASSIUM 50 MG TABLET PO SCH (09:36)
[2022-02-25] MEDS: HYDROCHLOROTHIAZIDE 12.5 MG CAPSULE (FP) PO SCH (09:36)
[2022-02-25] MEDS: LIDOCAINE 5% TOPICAL PATCH TP SCH (09:36)
[2022-02-25] MEDS: ATORVASTATIN CA 10 MG TABLET (FP) PO SCH (09:37)
[2022-02-25] MEDS: amLODIPine BESYLATE 10 MG TABLET (FP) PO SCH (09:37)
[2022-02-25] MEDS: NICOTINE 7 MG/24 HOURS TOPICAL PATCH TD SCH (09:37)
[2022-02-25] MEDS: IBUPROFEN 600 MG TABLET (FP) PO PRN ×2 (09:37→21:19)
[2022-02-25] MEDS: FAMOTIDINE 20 MG TABLET PO SCH ×2 (09:37→21:18)
[2022-02-25] MEDS: PRENATAL VITAMINS W/ FOLIC ACID TABLET (FP) PO SCH (10:19)
[2022-02-25] MEDS: LIDOCAINE PATCH REMOVAL MC SCH (21:17)
[2022-02-25] MEDS: METHYL SALICYLATE/MENTHOL OINT 30 GM TUBE TP SCH (21:17)
[2022-02-25] MEDS: MELATONIN 5 MG TABLETS PO SCH (21:17)
[2022-02-25] MEDS: THIAMINE HCL 100 MG TABLET (FP) PO SCH (21:18)
[2022-02-26] MEDS: FAMOTIDINE 20 MG TABLET PO SCH ×2 (10:28→21:20)
[2022-02-26] MEDS: LOSARTAN POTASSIUM 50 MG TABLET PO SCH (10:28)
[2022-02-26] MEDS: HYDROCHLOROTHIAZIDE 12.5 MG CAPSULE (FP) PO SCH (10:29)
[2022-02-26] MEDS: PRENATAL VITAMINS W/ FOLIC ACID TABLET (FP) PO SCH (10:29)
[2022-02-26] MEDS: ATORVASTATIN CA 10 MG TABLET (FP) PO SCH (10:29)
[2022-02-26] MEDS: amLODIPine BESYLATE 10 MG TABLET (FP) PO SCH (10:29)
[2022-02-26] MEDS: LIDOCAINE 5% TOPICAL PATCH TP SCH (10:29)
[2022-02-26] MEDS: NICOTINE 7 MG/24 HOURS TOPICAL PATCH TD SCH (10:29)
[2022-02-26] MEDS: MELATONIN 5 MG TABLETS PO SCH (21:20)
[2022-02-26] MEDS: IBUPROFEN 600 MG TABLET (FP) PO PRN (21:20)
[2022-02-26] MEDS: THIAMINE HCL 100 MG TABLET (FP) PO SCH (21:20)
[2022-02-26] MEDS: METHYL SALICYLATE/MENTHOL OINT 30 GM TUBE TP SCH (22:27)
[2022-02-26] MEDS: LIDOCAINE PATCH REMOVAL MC SCH (22:27)
[2022-02-27] MEDS: NICOTINE 10 MG CARTRIDGE (INHALER) IH PRN (10:17)
[2022-02-27] MEDS: FAMOTIDINE 20 MG TABLET PO SCH ×2 (10:18→23:03)
[2022-02-27] MEDS: ATORVASTATIN CA 10 MG TABLET (FP) PO SCH (10:18)
[2022-02-27] MEDS: BUDESONIDE/FORMETEROL FUMARATE 160/4.5 mcg INHALER IH PRN (10:18)
[2022-02-27] MEDS: LOSARTAN POTASSIUM 50 MG TABLET PO SCH (10:19)
[2022-02-27] MEDS: PRENATAL VITAMINS W/ FOLIC ACID TABLET (FP) PO SCH (10:19)
[2022-02-27] MEDS: HYDROCHLOROTHIAZIDE 12.5 MG CAPSULE (FP) PO SCH (10:19)
[2022-02-27] MEDS: LIDOCAINE 5% TOPICAL PATCH TP SCH (10:19)
[2022-02-27] MEDS: NICOTINE 7 MG/24 HOURS TOPICAL PATCH TD SCH (10:19)
[2022-02-27] MEDS: IBUPROFEN 600 MG TABLET (FP) PO PRN ×2 (10:19→18:39)
[2022-02-27] MEDS: amLODIPine BESYLATE 10 MG TABLET (FP) PO SCH (10:19)
[2022-02-27] MEDS: MELATONIN 5 MG TABLETS PO SCH (23:03)
[2022-02-27] MEDS: LIDOCAINE PATCH REMOVAL MC SCH (23:03)
[2022-02-27] MEDS: METHYL SALICYLATE/MENTHOL OINT 30 GM TUBE TP SCH (23:03)
[2022-02-27] MEDS: THIAMINE HCL 100 MG TABLET (FP) PO SCH (23:03)
[2022-02-28] MEDS ORDERED: amLODIPine BESYLATE 10 MG TABLET (FP) PO ONE (04:58)
[2022-02-28] MEDS: LOSARTAN POTASSIUM 50 MG TABLET PO SCH (09:47)
[2022-02-28] MEDS: LIDOCAINE 5% TOPICAL PATCH TP SCH (09:47)
[2022-02-28] MEDS: HYDROCHLOROTHIAZIDE 12.5 MG CAPSULE (FP) PO SCH (09:47)
[2022-02-28] MEDS: FAMOTIDINE 20 MG TABLET PO SCH ×2 (09:48→21:12)
[2022-02-28] MEDS: NICOTINE 7 MG/24 HOURS TOPICAL PATCH TD SCH (09:48)
[2022-02-28] MEDS: PRENATAL VITAMINS W/ FOLIC ACID TABLET (FP) PO SCH (09:48)
[2022-02-28] MEDS: ATORVASTATIN CA 10 MG TABLET (FP) PO SCH (09:48)
[2022-02-28] MEDS: IBUPROFEN 600 MG TABLET (FP) PO PRN (18:21)
[2022-02-28] MEDS: MELATONIN 5 MG TABLETS PO SCH (21:12)
[2022-02-28] MEDS: METHYL SALICYLATE/MENTHOL OINT 30 GM TUBE TP SCH (21:12)
[2022-02-28] MEDS: THIAMINE HCL 100 MG TABLET (FP) PO SCH (21:12)
[2022-02-28] MEDS: NICOTINE 10 MG CARTRIDGE (INHALER) IH PRN (21:12)
[2022-02-28] MEDS: LIDOCAINE PATCH REMOVAL MC SCH (21:13)
[2022-03-01] MEDS: LOSARTAN POTASSIUM 50 MG TABLET PO SCH (10:19)
[2022-03-01] MEDS: PRENATAL VITAMINS W/ FOLIC ACID TABLET (FP) PO SCH (10:20)
[2022-03-01] MEDS: amLODIPine BESYLATE 10 MG TABLET (FP) PO SCH (10:20)
[2022-03-01] MEDS: FAMOTIDINE 20 MG TABLET PO SCH ×2 (10:20→21:26)
[2022-03-01] MEDS: ATORVASTATIN CA 10 MG TABLET (FP) PO SCH (10:20)
[2022-03-01] MEDS: LIDOCAINE 5% TOPICAL PATCH TP SCH (10:20)
[2022-03-01] MEDS: hydrOXYzine PAMOATE 25 MG CAPSULE (FP) PO PRN (10:20)
[2022-03-01] MEDS: HYDROCHLOROTHIAZIDE 12.5 MG CAPSULE (FP) PO SCH (10:20)
[2022-03-01] MEDS: NICOTINE 7 MG/24 HOURS TOPICAL PATCH TD SCH (10:21)
[2022-03-01] MEDS ORDERED: ONDANSETRON *ODT* 4 MG TABLET SL PRN (14:41)
[2022-03-01] MEDS: NICOTINE 10 MG CARTRIDGE (INHALER) IH PRN (21:25)
[2022-03-01] MEDS: LIDOCAINE PATCH REMOVAL MC SCH (21:26)
[2022-03-01] MEDS: MELATONIN 5 MG TABLETS PO SCH (21:26)
[2022-03-01] MEDS: METHYL SALICYLATE/MENTHOL OINT 30 GM TUBE TP SCH (21:26)
[2022-03-01] MEDS: THIAMINE HCL 100 MG TABLET (FP) PO SCH (21:26)
[2022-03-02 06:45] VITALS: TEMP 97.3
[2022-03-02 08:55] VITALS: BP 149/95; PULSE 108
[2022-03-02] MEDS: PRENATAL VITAMINS W/ FOLIC ACID TABLET (FP) PO SCH (09:06)
[2022-03-02] MEDS: FAMOTIDINE 20 MG TABLET PO SCH (09:07)
[2022-03-02] MEDS: LOSARTAN POTASSIUM 50 MG TABLET PO SCH (09:07)
[2022-03-02] MEDS: amLODIPine BESYLATE 10 MG TABLET (FP) PO SCH (09:07)
[2022-03-02] MEDS: LIDOCAINE 5% TOPICAL PATCH TP SCH (09:08)
[2022-03-02] MEDS: HYDROCHLOROTHIAZIDE 12.5 MG CAPSULE (FP) PO SCH (09:08)
[2022-03-02] MEDS: NICOTINE 7 MG/24 HOURS TOPICAL PATCH TD SCH (09:08)
[2022-03-02] MEDS: ATORVASTATIN CA 10 MG TABLET (FP) PO SCH (09:08)
== END 2022-03-02 09:15 | disposition home or self-care (01) | DRG 772 ==
LOC: YASAS 08:56 → Y3E 12:09
PROVIDERS: ADMIT Allergy & Immunology; ATTEND Allergy & Immunology
PROC: HZ42ZZZ Group Counseling for Substance Abuse Treatment, Cognitive-Behavioral (ICD-10-PCS; principal; 2022-02-01)
DX: F11.20 Opioid dependence, uncomplicated (principal); F14.20 Cocaine dependence, uncomplicated; F12.20 Cannabis dependence, uncomplicated; F16.10 Hallucinogen abuse, uncomplicated; F17.210 Nicotine dependence, cigarettes, uncomplicated; F19.24 Other psychoactive substance dependence with psychoactive substance-induced mood disorder; F41.9 Anxiety disorder, unspecified; I10 Essential (primary) hypertension; E78.5 Hyperlipidemia, unspecified; E11.9 Type 2 diabetes mellitus without complications; E03.9 Hypothyroidism, unspecified; K21.9 Gastro-esophageal reflux disease without esophagitis; J44.9 Chronic obstructive pulmonary disease, unspecified; R07.9 Chest pain, unspecified; M16.11 Unilateral primary osteoarthritis, right hip; M79.604 Pain in right leg; D17.1 Benign lipomatous neoplasm of skin and subcutaneous tissue of trunk; Z62.810 Personal history of physical and sexual abuse in childhood; Z87.11 Personal history of peptic ulcer disease; Z88.8 Allergy status to other drugs, medicaments and biological substances; Z56.0 Unemployment, unspecified; Z59.01 Sheltered homelessness
CPT/HCPCS: 36415; 71045-TC-FY; 73590-TC-RT-FY; 80053; 81003; 85027; 86780; 86803; 87811; 93005; 93010; C9803-CS; T1023; U0003; U0005

== ENCOUNTER 2022-02-27 20:23 | Emergency (ER) | payer OTHER ==
[2022-02-27 20:38] VITALS: TEMP 98; BMI 29.5
[2022-02-27 21:38] LABS: BASO % 1.1 % (0-2.0); EOS % 4.8 % (0-4.5); HEMATOCRIT 40.1 % (35.4-49); HEMOGLOBIN 13.7 GM/dL (11.7-16.9); LYMPH % 26.4 % (8-40); MCH 30.9 pg (25.7-33.7); MCHC 34.1 g/dl (32.0-35.9); MEAN CELL VOLUME 90.5 fl (80-96); MEAN PLT VOLUME 8.3 fl (7.5-11.1); MONO % 12.5 % (3.8-10.2); NEUT % 55.2 % (42.8-82.8); PLATELET COUNT 288 10^3/uL (134-434); RBC 4.43 M/mm3 (4.00-5.60); RDW 14.6 % (11.9-15.9); WHITE BLOOD COUNT 8.8 K/mm3 (4.0-10.0)
[2022-02-27 22:32] LABS: ALBUMIN 4.2 g/dl (3.4-5.0); BLOOD UREA NITROGEN 16.1 mg/dL (7-18); CALCIUM 9.5 mg/dL (8.5-10.1)
[2022-02-27 22:35] LABS: CREATININE 0.8 mg/dL (0.55-1.3)
[2022-02-27 22:37] LABS: BILIRUBIN,TOTAL 0.3 mg/dL (0.2-1); TOT PROT 7.4 g/dl (6.4-8.2)
[2022-02-28 04:34] VITALS: BP 153/101; PULSE 88
== END 2022-02-28 04:44 | disposition home or self-care (01) ==
LOC: JER 20:23
DX: R07.9 Chest pain, unspecified (principal); R16.0 Hepatomegaly, not elsewhere classified; D18.00 Hemangioma unspecified site
CPT/HCPCS: 36415; 76700-TC; 80053; 84484; 85025; 93005; 93010; 99285-25